=== PATIENT | female | born 1955 | race Caucasian/White ===

== ENCOUNTER 2021-06-27 08:13 | Emergency (ER) | payer OTHER ==
[2021-06-27] MEDS ORDERED: METHYLPREDNISOLONE 125 MG INJ ONE (08:26)
[2021-06-27] MEDS ORDERED: NA CHLORIDE 0.9% 1,000 ML ONE (08:27)
[2021-06-27] MEDS ORDERED: DIPHENHYDRAMINE 50 MG/ML VIAL ONE (08:27)
[2021-06-27] MEDS ORDERED: FAMOTIDINE 20 MG/2 ML VIAL IV ONE (08:27)
--- NOTE | 2021-06-27 09:59 | ER ---
Nurse's Notes [facility] Name: Lucia Beaz Age: 66 yrs Sex: Female : 1955 Arrival Date: 06/27/2021 Time: 08:14 Bed 5 Private MD: Diagnosis: Urticaria, unspecified Presentation: 06/27 08:23 Chief complaint: Patient states: red, itchy rash all over body that began Tuesday. ss Seen at urgent care and given a steroid shot, topical cream and Hydroxizine which only seem to be making it worse. Coronavirus screen: Client denies travel out of the [place] in the last 14 days. Ebola Screen: Patient denies exposure to infectious person. Patient denies travel to an Ebola-affected area in the 21 days before illness onset. Onset: The symptoms/episode began/occurred 3 day(s) ago. Anaphylaxis evaluation, angioedema. Initial Sepsis Screen: Does the patient meet any 2 criteria? No. Patient's initial sepsis screen is negative. Does the patient have a suspected source of infection? No. Patient's initial sepsis screen is negative. Risk Assessment: Do you want to hurt yourself or someone else? Patient reports no desire to harm self or others. Onset of symptoms was June 24, 2021. 08:23 Method Of Arrival: Ambulatory 08:23 Acuity: VICKY 2 ss Historical: - Allergies: 08:29 Antivert; ss 08:29 PENICILLINS; ss - Home Meds: 08:29 Hydroxyzine Oral [Active]; ss - PMHx: 08:29 None; ss - Family history:: not pertinent. - Hospitalizations: : No recent hospitalization is reported. Screenin:30 Abuse screen: Denies threats or abuse. Nutritional screening: No deficits noted. aa5 Tuberculosis screening: No symptoms or risk factors identified. Fall Risk None identified. Assessment: 08:30 General: Appears uncomfortable, Behavior is calm, cooperative. Pain: Denies pain. aa5 Neuro: Level of Consciousness is awake, alert, obeys commands, Oriented to person, place, time, situation. Cardiovascular: Heart tones S1 S2 present Rhythm is regular. Respiratory: Airway is patent Respiratory effort is even, unlabored, Respiratory pattern is regular, symmetrical, Breath sounds are clear bilaterally. GI: Abdomen is flat, non-distended. : No signs and/or symptoms were reported regarding the genitourinary system. EENT: No signs and/or symptoms were reported regarding the EENT system. Derm: Skin is pink, warm \T\ dry. Rash noted that is itchy, red, on throughout body. Musculoskeletal: Range of motion: intact in all extremities. 09:20 Reassessment: Patient is alert, oriented x 3, equal unlabored respirations, skin aa5 warm/dry/pink. pt reports itching has improved. Vital Signs: 08:23 BP 115 / 89; Pulse 134; Resp 21; Temp 99.7(TE); Pulse Ox 98% on R/A; ss 08:35 Pulse 88; Resp 20; Pulse Ox 100% on R/A; aa5 09:21 BP 110 / 49; Pulse 69; Resp 18 S; Pulse Ox 100% on R/A; aa5 ED Course: 08:14 Patient arrived in ED. mr 08:15 Servando Manzo MD is Attending Physician. rn 08:17 Carla Landis RN is Primary Nurse. aa5 08:25 Inserted saline lock: 22 gauge in right forearm, using aseptic technique. dh3 08:29 Triage completed. ss 08:29 Arm band placed on right wrist. ss 08:30 Patient has correct armband on for positive identification. Placed in gown. Bed in low aa5 position. Call light in reach. Adult w/ patient. 10:07 No provider procedures requiring assistance completed. IV discontinued, intact, ss bleeding controlled, No redness/swelling at site. Pressure dressing applied. Administered Medications: 08:35 Drug: SOLU-Medrol (methylPrednisoLONE) 125 mg Route: IVP; Site: right forearm; aa5 10:07 Follow up: Response: No adverse reaction; Marked relief of symptoms ss 08:35 Drug: Benadryl (diphenhydrAMINE) 50 mg Route: IVP; Site: right forearm; aa5 10:06 Follow up: Response: No adverse reaction; Marked relief of symptoms ss 08:35 Drug: NS 0.9% 1000 ml Route: IV; Rate: 1000 ml; Site: right forearm; aa5 10:06 Follow up: IV Status: Completed infusion; IV Intake: 1000ml ss 08:35 Drug: Pepcid (famotidine) 20 mg Route: IVP; Site: right forearm; aa5 10:06 Follow up: Response: No adverse reaction; Marked relief of symptoms ss Intake: 10:06 IV: 1000ml; Total: 1000ml. ss Outcome: 09:59 Discharge ordered by . rn 10:07 Discharged to home ambulatory, with significant other. ss 10:07 Condition: improved 10:07 Discharge instructions given to patient, Instructed on discharge instructions, follow up and referral plans. medication usage, Demonstrated understanding of instructions, follow-up care, medications, Prescriptions given X 1. 10:08 Patient left the ED. Signatures: Malika Orona Roman, MD MD rn Boby, Carla RN RN aa5 Cynthia Roth RN RN ss Sasha Andrea 3 Corrections: (The following items were deleted from the chart) 09:25 08:30 Derm: Skin is pink, warm \T\ dry. Rash noted that is red, on throughout body aa5 aa5
--- NOTE | 2021-06-27 10:00 | EDPHYS ---
Physician Documentation [facility] Name: Lucia Baez Age: 66 yrs Sex: Female : 1955 Arrival Date: 06/27/2021 Time: 08:14 Bed 5 Private MD: ED Physician Servando Manzo HPI: 06/27 08:32 This 66 yrs old Female presents to ER via Ambulatory with complaints of rn Allergic Reaction, Rash. 08:32 The patient presents with itching, rash. Onset: The symptoms/episode began/occurred 4 rn day(s) ago. Associated signs and symptoms: Pertinent positives: hives, rash, Pertinent negatives: abdominal pain, fever, vomiting. Possible causes: The patient has no known obvious cause for the symptoms. At home the patient or guardian has treated the symptoms with Benadryl. Severity of symptoms: At their worst the symptoms were moderate in the emergency department the symptoms are unchanged. The patient has not experienced similar symptoms in the past. The patient has been recently seen by a physician: The patient has been recently seen at an urgent care. Patient reports 4 days of itching and diffuse rash. Reports lip swelling. Seen in urgent care for this and given a cortisone shot. States symptoms have not improved and feels like they are worsening. Was not on steroids for the remainder of the week. No new medication or exposure that she knows of. No previous history of allergic reactions. No shortness of breath or swallowing issues.. Historical: - Allergies: 08:29 Antivert; ss 08:29 PENICILLINS; ss - Home Meds: 08:29 Hydroxyzine Oral [Active]; ss - PMHx: 08:29 None; ss - Family history:: not pertinent. - Hospitalizations: : No recent hospitalization is reported. ROS: 08:32 Constitutional: Negative for fever, chills, and weight loss, Eyes: Negative for injury, rn pain, redness, and discharge, ENT: Negative for injury, pain, and discharge, Neck: Negative for injury, pain, and swelling, Cardiovascular: Negative for chest pain, palpitations, and edema, Respiratory: Negative for shortness of breath, cough, wheezing, and pleuritic chest pain, Abdomen/GI: Negative for abdominal pain, diarrhea, and constipation, Back: Negative for injury and pain, : Negative for injury, bleeding, discharge, and swelling, MS/Extremity: Negative for injury and deformity, Skin: + for rash and itching Neuro: Negative for headache, weakness, numbness, tingling, and seizure. Exam: 08:32 Constitutional: This is a well developed, well nourished patient who is awake, alert, rn and in no acute distress. Appears anxious and constantly scratching. Head/Face: Normocephalic, atraumatic. Eyes: Periorbital areas with no swelling, redness, or edema. Cardiovascular: Regular rate and rhythm. No pulse deficits. Respiratory: Speaking full sentences. No increased work of breathing, no retractions or nasal flaring. Skin: Warm, dry. + diffuse urticaria with excoriations, no bullae, no skin sloughing. MS/ Extremity: Pulses equal, no cyanosis. Neuro: Awake and alert, GCS 15, oriented to person, place, time, and situation. Ambulatory to room without difficulty or assistance. Vital Signs: 08:23 BP 115 / 89; Pulse 134; Resp 21; Temp 99.7(TE); Pulse Ox 98% on R/A; ss 08:35 Pulse 88; Resp 20; Pulse Ox 100% on R/A; aa5 09:21 BP 110 / 49; Pulse 69; Resp 18 S; Pulse Ox 100% on R/A; aa5 MDM: 08:15 Patient medically screened. rn 09:57 Differential diagnosis: anaphylaxis, urticaria, Idiopathic urticaria, acute allergic rn phenomena. Data reviewed: vital signs, nurses notes, and as a result, I will discharge patient. Counseling: I had a detailed discussion with the patient and/or guardian regarding: the historical points, exam findings, and any diagnostic results supporting the discharge/admit diagnosis, the need for outpatient follow up, to return to the emergency department if symptoms worsen or persist or if there are any questions or concerns that arise at home. Response to treatment: the patient's symptoms have mildly improved after treatment, and as a result, I will discharge patient. Special discussion: I discussed with the patient/guardian in detail that at this point there is no indication for admission to the hospital. It is understood, however, that if the symptoms persist or worsen the patient needs to return immediately for re-evaluation. ED course: Patient has improved, still itching but tachycardia resolved and urticaria starting to spread out with better demarcation and less surface area involved. No difficulty breathing. Will DC home with steroids and return precautions. Urged to follow-up with allergy and immunology.. 06/27 08:25 Order name: IV Start; Complete Time: 08:30 rn Administered Medications: 08:35 Drug: SOLU-Medrol (methylPrednisoLONE) 125 mg Route: IVP; Site: right forearm; aa5 10:07 Follow up: Response: No adverse reaction; Marked relief of symptoms ss 08:35 Drug: Benadryl (diphenhydrAMINE) 50 mg Route: IVP; Site: right forearm; aa5 10:06 Follow up: Response: No adverse reaction; Marked relief of symptoms ss 08:35 Drug: NS 0.9% 1000 ml Route: IV; Rate: 1000 ml; Site: right forearm; aa5 10:06 Follow up: IV Status: Completed infusion; IV Intake: 1000ml ss 08:35 Drug: Pepcid (famotidine) 20 mg Route: IVP; Site: right forearm; aa5 10:06 Follow up: Response: No adverse reaction; Marked relief of symptoms ss Disposition Summary: 06/27/21 09:59 Discharge Ordered Location: Home rn Problem: an ongoing problem rn Symptoms: have improved rn Condition: Stable rn Diagnosis - Urticaria, unspecified rn Followup: rn - With: Private Physician - When: As needed - Reason: Recheck today's complaints, Re-evaluation by your physician Discharge Instructions: - Discharge Summary Sheet rn - Broderickes rn Forms: - Medication Reconciliation Form rn - Thank You Letter rn - Antibiotic applications intern - Prescription Opioid Use rn Prescriptions: - Prednisone 20 mg Oral Tablet - take 3 tablets by ORAL route once daily for 5 days; 15 tablet; Refills: 0, rn Product Selection Permitted Signatures: Servando Manzo MD MD rn Calderon, Audri RN RN aa5 Cynthia Roth RN RN ss
[2021-06-27 10:20] VITALS: TEMP 99.7
[2021-06-27 10:21] VITALS: O2SAT 100
[2021-06-27 10:23] VITALS: BP 110/49
== END 2021-06-27 10:08 | disposition home or self-care (01) ==
LOC: ER 08:13
DX: L50.9 Urticaria, unspecified (principal); Z88.0 Allergy status to penicillin; Z88.8 Allergy status to other drugs, medicaments and biological substances
CPT/HCPCS: 96361; 96375; 96374; 99283; J1200; J7030; J2930

== ENCOUNTER 2025-03-20 13:18 | Emergency (ER) | payer OTHER ==
--- OUTSIDE RECORDS SUMMARY | 2025-03-20 13:24 | XMS REPORT | Continuity of Care Document ---
Author Name Unknown Address [address] [facility] [place] [address] [facility] Address [address] [facility] [place] [address] Care Team Providers Care Professor Of Forestry Name Role Phone PCP, PATIENT DOES NOT HAVE A Primary Care Physic julián Unavailable YOSSI NELSON Attending Clinician UnavailArpit Porter MD Attending Clinician ARPIT GARZON Attending Clinician Unavailable Sreekanth Darnell MD Attending Clinician SREEKANTH DARNELL Attending Clinician Unavailable RADIOLOGY Attending Clinician Unavailable Radiology Attending Clinician Unavailable Doctor Unassigned, [place] Attending Clinician U navailable CINTHYA PAREDES Attending Clinician UnavailCinthya Vincent DO Attending Clinician [phone] YOSSI NELSON Admitting Clinician UnavailSREEKANTH Tadeo Admitting Clinician Unavailable CINTHYA PAREDES Admitting Clinician Unavailab garzon Payers Payer Name Policy Type Policy Number Effective Date Expirati on Date Source AEPaolaNA EPO [id number] 2018 00:00:00 MEDICARE PART A \\T\\ B [id number] 2021 00:00:00 MEDICARE PART A AND B Medicare [id number] 2024 00:00:00 [employer] ACO COMM [id number] 2017 00:00:00 [employer] EMPLOYEE COMM [id number] 2017 00:00:00 Problems Condition Name Condition Details Condition Category Status Onset Date Resolution Date Last Treatment Date Treating Clinician Comments Source Nephrolith iasis Nephrolith iasis Disease Active 12-17 00:00: 00 [facility] Left flank pain Left flank pain Disease Active 12-17 00:00: 00 [facility] Prediabete s Prediabete s Disease Active 08-13 00:00: 00 Pao Fisher Hyperlipid emia LDL goal <100 Hyperlipid emia LDL goal <100 Disease Active 08-13 00:00: 00 Pao Fisher Calcium oxalate stones Calcium oxalate stones Disease Active 05-07 00:00: 00 Pao Fisher Hyperparat hyroidism Hyperparat hyroidism Disease Active 05-07 00:00: 00 Pao Fisher Screening for colon cancer Screening for colon cancer Disease Active 05-07 00:00: 00 Pao Fisher History of gastric restrictiv e surgery History of gastric restrictiv e surgery Disease Active 05-07 00:00: 00 Pao Fisher H/O: hysterecto my H/O: hysterecto my Disease Active 05-07 00:00: 00 Pao Fisher Asymptomat ic menopausal state Asymptomat ic menopausal state Disease Active 05-07 00:00: 00 Pao Fisher Family history of diabetes mellitus in father Family history of diabetes mellitus in father Disease Active 05-07 00:00: 00 Pao Fisher Allergies, Adverse Reactions, Alerts Allergy Name Allergy Type Status Severity Reaction(s) Onset Date Inactive Date Treating Clinician Comments Source Penicill ins Propensi ty to adverse reaction s Active 04-11 00:00: 00 Pao Fisher PENICILL INS Drug Class Active 04-11 00:00: 00 MHEOUT NO KNOWN ALLERGIE S Drug Class Active [facility] ALLERGIE S NOT ON FILE SYSTEMIC Active MHEOUT NO KNOWN ALLERGIE S SYSTEMIC Active MHEOUT Social History Social Habit Start Date Stop Date Quantity Comments Source Gender identity 2023-10-30 04:05:04 Identifies as female gender (finding) [facility] ASSERTION Possible [facility] Sexual orientation [facility] Alcoholic beverage intake 2024-08-13 00:00:00 2024-08-13 00:00:00 Lifetime non-drinker (finding) [facility] History of Social function 2024-05-06 00:00:00 2024-05-06 00:00:00 [facility] Tobacco use and exposure 2024-04-11 00:00:00 2024-04-11 00:00:00 Smokeless tobacco non-user [facility] Sex assigned at 1955 00:00:00 1955 00:00:00 [facility] Smoking Status Start Date Stop Date Source Tobacco smoking consumption unknown [facility] Never smoked tobacco Pao [facility] Medications Ordered Medication Name Filled Medication Name Start Date Stop Date Current Medication? Ordering Clinician Indication Dosage Frequency Signature (SIG) Comments Components Source ketorolac (TORADOL) injection 15 mg 12-17 20:45: 00 12-17 20:12 :00 No 15mg 15 mg, Slow IV Push, ONCE, 1 dose, On Tue12/17/24 at 1545, Routine [facility] cyclobenzap rine 5 mg tablet 12-17 00:00: 00 Yes [id number] 5mg Take 1 tablet by mouth every 8 (eight) hours as needed for Muscle Spasms. [facility] Multiple Vitamin (multivitam in) capsule Multiple Vitamin (multivitam in) capsule 08-13 10:40: 05 Yes 1{capsu le} QD Take 1 capsule by mouth 1 time each day. Pao Fisher Semaglutide -Weight Management (Wegovy) 0.25 MG/0.5ML solution auto-inject or Semaglutide -Weight Management (Wegovy) 0.25 MG/0.5ML solution auto-inject or - 00:00: 00 09-10 23:59 :00 No [id number] .25mg Inject 0.25 mg under the skin 1 time each week for 28 days. Pao Fisher aspirin EC 81 MG EC tablet aspirin EC 81 MG EC tablet 04-11 11:47: 53 Yes 81mg QD Take 81 mg by mouth 1 time each day. Pao Fisher estradiol (Estrace) 0.1 MG/GM vaginal cream estradiol (Estrace) 0.1 MG/GM vaginal cream 04-06 00:00: 00 Yes See Instructio ns, apply pea size amount to urethra and vagina nightly for 2 weeks and then 3xweek. May dispose of applicator ., # 43 gm, 3 Refill(s), Pharmacy: [facility] [id number], 167.64, cm, 04/06/23 11:01:00 CDT, Height, 75.455, kg, 04/06/23 11... Pao Fisher ketorolac (TORADOL) injection 15 mg 02-28 16:45: 00 02-28 16:04 :00 No 15mg 15 mg, Slow IV Push, ONCE, 1 dose, On Tue02/28/23 at 1145, Routine [facility] ketorolac 10 mg tablet 02-28 00:00: 00 Yes [id number] 10mg Take 1 tablet by mouth every 6 (six) hours as needed for Pain (scale 1-3). [facility] Immunizations Ordered Immunization Name Filled Immunization Name Date Status Comments Source Pneumococcal Conjugate PCV 20 Pneumococcal Conjugate PCV 20 2023-05-15 00:00:00 Completed [facility] Influenza, High-dose Seasonal, Quadrivalent, Preservative Free Influenza, High-dose Seasonal, Quadrivalent, Preservative Free 2023-05-15 00:00:00 Completed [facility] Vital Signs Vital Name Observation Time Observation Value Comments S ource Systolic blood pressure 2024-12-17 20:13:28 148 mm[Hg] [facility] Diastolic blood pressure 2024-12-17 20:13:28 65 mm[Hg] [facility] Heart rate 2024-12-17 20:13:28 64 /min [facility] Body temperature 2024-12-17 20:13:28 37 Niecy [facility] Respiratory rate 2024-12-17 20:13:28 18 /min [facility] Oxygen saturation in Arterial blood by Pulse oximetry 2024-12-17 20:13:28 99 /min [facility] Body height 2024-12-17 16:33:00 167.6 cm [facility] Body weight 2024-12-17 16:33:00 70.308 kg [facility] BMI 2024-12-17 16:33:00 25.02 kg/m2 [facility] Systolic blood pressure 2024-08-13 10:29:00 111 mm[Hg] [facility] Diastolic blood pressure 2024-08-13 10:29:00 71 mm[Hg] [facility] Heart rate 2024-08-13 10:29:00 69 [facility] Body temperature 2024-08-13 10:29:00 36.61 [facility] Body height 2024-08-13 10:29:00 167.6 cm [facility] Body weight 2024-08-13 10:29:00 72.439 kg [facility] BMI 2024-08-13 10:29:00 25.78 kg/m2 [facility] Systolic blood pressure 2024-08-13 10:29:00 111 mm[Hg] [facility] Diastolic blood pressure 2024-08-13 10:29:00 71 mm[Hg] [facility] Heart rate 2024-08-13 10:29:00 69 /min [facility] Body temperature 2024-08-13 10:29:00 36.61 [facility] Body height 2024-08-13 10:29:00 167.6 cm [facility] Body weight 2024-08-13 10:29:00 72.439 kg [facility] BMI 2024-08-13 10:29:00 25.78 kg/m2 [facility] Systolic blood pressure 2024-06-18 11:23:00 117 mm[Hg] [facility] Diastolic blood pressure 2024-06-18 11:23:00 75 mm[Hg] [facility] Heart rate 2024-06-18 11:23:00 61 /min [facility] Body height 2024-06-18 11:23:00 167.6 cm [facility] Body weight 2024-06-18 11:23:00 69.854 kg [facility] BMI 2024-06-18 11:23:00 24.86 kg/m2 [facility] Systolic blood pressure 2024-06-18 11:23:00 117 mm[Hg] [facility] Diastolic blood pressure 2024-06-18 11:23:00 75 mm[Hg] [facility] Heart rate 2024-06-18 11:23:00 61 /min [facility] Body height 2024-06-18 11:23:00 167.6 cm [facility] Body weight 2024-06-18 11:23:00 69.854 kg [facility] [place] BMI 2024-06-18 11:23:00 24.86 kg/m2 [facility] Systolic blood pressure 2024-05-07 10:13:00 123 mm[Hg] [facility] Diastolic blood pressure 2024-05-07 10:13:00 76 mm[Hg] [facility] Heart rate 2024-05-07 10:13:00 67 /min [facility] Body temperature 2024-05-07 10:13:00 36.39 Niecy [facility] Body height 2024-05-07 10:13:00 167.6 cm [facility] Body weight 2024-05-07 10:13:00 71.442 kg [facility] BMI 2024-05-07 10:13:00 25.42 kg/m2 [facility] Oxygen saturation in Arterial blood by Pulse oximetry 2024-05-07 10:13:00 98 /min [facility] Systolic blood pressure 2024-05-07 10:13:00 123 mm[Hg] [facility] Diastolic blood pressure 2024-05-07 10:13:00 76 mm[Hg] [facility] Heart rate 2024-05-07 10:13:00 67 /min [facility] Body temperature 2024-05-07 10:13:00 36.39 Niecy [facility] Body height 2024-05-07 10:13:00 167.6 cm [facility] 2024-05-07 10:13:00 71.442 kg [facility] BMI 2024-05-07 10:13:00 25.42 kg/m2 Bradleyaysha robertson [facility] Oxygen saturation in Arterial blood by Pulse oximetry 2024-05-07 10:13:00 98 /min [facility] Her crook [facility] Body height 2024-04-11 11:45:00 167.6 cm [facility] Body weight 2024-04-11 11:45:00 72.576 kg [facility] BMI 2024-04-11 11:45:00 25.82 kg/m2 Bradleyaysha robertson [facility] Body height 2024-04-11 11:45:00 167.6 cm Bradleyaysha robertson [facility] Body weight 2024-04-11 11:45:00 72.576 kg Bradleyaysha robertson [facility] BMI 2024-04-11 11:45:00 25.82 kg/m2 [facility] Systolic blood pressure 2023-02-28 15:58:18 143 mm[Hg] [facility] Diastolic blood pressure 2023-02-28 15:58:18 74 mm[Hg] [facility] Heart rate 2023-02-28 15:58:18 86 /min [facility] Body temperature 2023-02-28 15:58:18 37.11 [facility] Respiratory rate 2023-02-28 15:58:18 18 /min [facility] Body height 2023-02-28 15:43:00 167.6 cm [facility] Body weight 2023-02-28 15:43:00 75.297 kg [facility] BMI 2023-02-28 15:43:00 26.79 kg/m2 [facility] Oxygen saturation in Arterial blood by Pulse oximetry 2023-02-28 15:43:00 97 /min [facility] Procedures Procedure Date / Time Performed Performing Clinician Source COMP. METABOLIC PANEL (55503) 2024-12-17 17:43:00 Yossi Nelson [facility] CBC WITH DIFF 2024-12-17 17:43:00 [facility]IS 2024-12-17 17:43:00 Yossi Nelson Un [facility] ABDOMEN PELVIS WO CONTRAST 2024-12-17 17:37:00 Yossi Nelson [facility] LIPID PANEL W/CALCULATED LDL 2024-08-14 09:37:00 Le, Justice-Bre T [facility] HEMOGLOBIN A1C 2024-08-14 09:37:00 Le, Justice-Bre T [facility] US renal complete 2024-06-18 00:00:00 [facility]PREHENS[facility] METABOLIC PANEL 2024-05-08 10:14:00 Le, [facility]-Bre T [facility] LIPID PANEL W/CALCULATED LDL 2024-05-08 10:14:00 Le, Justice-Bre T [facility] VITAMIN B12 LEVEL 2024-05-08 10:14:00 Le, Justice-Bre T [facility] FERRITIN 2024-05-08 10:14:00 Le, Justice-Bre T [facility] FOL[facility] RBC 2024-05-08 10:14:00 Le, Justice-Bre T Bradley rial [facility] HEMOGLOBIN A1C 2024-05-08 10:14:00 Le, Justice-Bre T [facility] MAGNESIUM LEVEL 2024-05-08 10:14:00 Le, [facility] VITAMIN B6 LEVEL 2024-05-08 10:14:00 Le, [facility]-Bre T [facility] VITAMIN B1 LEVEL 2024-05-08 10:14:00 Le, Justice-Bre T [facility] THYROID STIMULATING HORMONE 2024-05-08 10:14:00 Le, Justice-Bre T [facility] COMPLETE BLOOD COUNT W/DIFF AND PLATELET 2024-05-08 10:14:00 Le, [facility]-Bre T [facility] VITAMIN D 25-HYDROXY 2024-05-08 10:14:00 Le, Polina o Paola [facility] VITAMIN A LEVEL 2024-05-08 10:14:00 Arpit Garzon [facility] ZINC LEVEL 2024-05-08 10:14:00 Le, Arpit Huerta rial [facility] COPPER LEVEL 2024-05-08 10:14:00 Le, Arpit Harper Bradley rial [facility] DEXA bone density 2024-05-07 00:00:00 [facility] Cologuard? colon cancer screening 2024-05-07 00:00:00 [facility] Bilateral screening mammogram with tomosynthesis 2024-05-07 00:00:00 [facility] US RETROPERITONEAL COMPLETE 2023-06-01 17:00:29 Requisition, Paper [facility] ASSIGNMENT OF BENEFITS 2023-06-01 15:42:34 Docto r Unassigned, Broughton [facility] BASIC METABOLIC PANEL (NA, K, CL, CO2, GLUCOSE, BUN, CREATININE, CA) 2023-02-28 15:54:00 Cinthya Paredes [facility] CBC WITH DIFF 2023-02-28 15:54:00 [facility] 2023-02-28 15:54:00 [facility]ared[facility] NOTICE OF PRIVACY PRACTICES 2023-02-28 15:39:39 Doctor Unassigned, [place]oughton [facility] Plan of Care Planned Activity Planned Date Details Comments Source Procedure 2025-06-18 00:00:00 US renal complete [facility] Encounters Start Date/Time End Date/Time Encounter Type Admission Type Attending Clinicians Care Facility Care Department Encounter ID Source 2024-12-17 11:36:00 2024-12-17 15:17:00 Emergency X YOSSI NELSON [facility] ERT [id number] [facility] 2024-12-17 11:36:00 2024-12-17 15:17:00 Emergency X YOSSI NELSON [facility] ERT [id number] [facility] 2024-08-30 00:00:00 2024-10-30 20:34:01 Results Follow-Up LeArpit Export [id number] 1.2.840.114 350.1.13.70 8.2.7.2.686 [id number] [facility] 2024-08-13 10:40:00 2024-08-13 11:24:48 Office Visit Le, Arpit Harper Export [id number] 1.2.840.114 350.1.13.70 8.2.7.2.686 [id number] [facility] 2024-08-13 10:27:00 2024-08-13 11:24:48 Outpatient Elective LE, ARPIT MHEOUT MHEOUT [id number] [facility] 2024-05-11 00:00:00 2024-07-11 20:33:23 Results Follow-Up LeArpit Export [id number] 1.2.840.114 350.1.13.70 8.2.7.2.686 [id number] Pao reyes [facility] 2024-05-10 00:00:00 2024-07-10 20:33:09 Results Follow-Up LeArpit Export [id number] 1.2.840.114 350.1.13.70 8.2.7.2.686 [id number] [facility] 2024-07-09 14:01:48 2024-07-09 15:46:59 Outpatient Elective MHEOUT MHEOUT [id number] MHEOUT 2024-06-18 11:10:00 2024-06-18 11:53:19 Office Visit Sreekanth Darnell Export [id number] 1.2.840.114 350.1.13.70 8.2.7.2.686 [id number] [facility] 2024-06-18 11:02:22 2024-06-18 11:53:19 Outpatient Elective SREEKANTH DARNELL MHJoshuaOUT MHEOUT [id number] MHEOUT 2024-05-07 10:20:00 2024-05-07 11:26:27 Office Visit Arpit Garzon [id number] 1.2840.114 350.1.13.70 8.2.7.2.686 [id number] Pao Montilla [facility] 2024-05-07 09:59:06 2024-05-07 11:26:27 Outpatient Elective ARPIT GARZON MHEOUT EOUT [id number] EOUT 2024-04-11 11:08:36 2024-04-11 23:59:00 Outpatient Elective SREEKANTH DARNELL NAOMI EOUT [id number] EOUT 2024-04-11 11:20:00 2024-04-11 11:30:00 Office Visit Sreekanth Darnell [id number] 1.2840.114 350.1.13.70 8.2.7.2.686 [id number] [facility] 2023-06-01 10:43:37 2023-06-01 23:59:00 Outpatient R RADIOLOGY [facility] [id number] [facility] 2023-06-01 10:43:37 2023-06-01 23:59:00 Hospital Encounter Radiology [facility] 1.2.114 350.1.13.10 4.2.7.2.686 [id number] [facility] 2023-06-01 00:00:00 2023-06-01 00:00:00 Orders Only Doctor Unassigned, [place] [facility] 1.2.114 350.1.13.10 4.2.7.2.686 [id number] [facility] 2023-03-01 00:00:00 2023-03-01 00:00:00 Patient Secure Msg Doctor Unassigned, Broughton [facility] 1.2.114 350.1.13.10 4.2.7.2.686 [id number] [facility] 2023-02-28 10:44:00 2023-02-28 12:10:00 Emergency X CINTHYA PAREDES [facility] ERT [id number] [facility] 2023-02-28 10:44:00 2023-02-28 12:10:00 Emergency Cinthya Paredes [facility] 1.2.840.114 350.1.13.10 4.2.7.2.686 [id number] [facility] Results Test Description Test Time Test Comments Results Resul t Comments Source CT ABDOMEN PELVIS WO CONTRAST 2024-12-06 2 18:44:54 ORDERING PHYSICIAN: YOSSI NELSON. HISTORY: Flank pain, kidney stone suspected ? TECHNIQUE: CT abdomen and pelvis without intravenous contrast. ?CT wasperformed according to ALARA (As Low As Reasonably Achievable). ? COMPARISON: 02/28/2023 FINDINGS: Abdomen: Visualized Chest: Visualized portions of the lungs show no consolidation oreffusions. Liver And Biliary Tree: The liver is normal. No stones are present. Thereis no biliary dilation. Spleen: No splenic abnormalities are identified. Kidneys: Small bilateral hemorrhagic cortical cysts measure up to 1.2 cm(left, image 47/2). Punctate sub-2 mm calyceal calculi are present. Thereis no hydronephrosis. Adrenals: No adrenal masses are identified. Pancreas: No pancreatic masses are identified. Lymph Nodes: No adenopathy is identified. Aorta: No aneurysms are seen. Small Bowel: There is a Tiara-en-Y gastric bypass. Terminal ileum is normal. PELVIS: Colon: The appendix is normal. Moderate sigmoid colonic diverticulosis ispresent. Bladder: The bladder wall is smooth. Reproductive Organs: The uterus is absent. Ovaries are normal. Osseous Structures: No suspicious lesions are identified. [facility] WITH [id number] 18:04:36* Test Item Value Reference Range Interpretation Comme nts WBC (test code = 6690-2) 5.94 4.30-11.10 RBC (test code = 789-8) 4.17 3.93-5.25 HGB (test code = 718-7) 12.6 g/dL 11.6-15.0 HCT (test code = 4544-3) 39.1 % 35.7-45.2 MCV (test code = 787-2) 93.8 fL 80.6-95.5 MCH (test code = 785-6) 30.2 pg 25.9-32.8 MCHC (test code = 786-4) 32.2 g/dL 31.6-35.1 RDW-SD (test code = 43690-5) 50.8 fL 39.0-49.9 H RDW-CV (test code = 788-0) 14.7 % 12.0-15.5 PLT (test code = 777-3) 259 166-358 MPV (test code = 56434-3) 9.7 fL 9.5-12.9 NRBC/100 WBC (test code = 7018331781) 0 0.0-10.0 NRBC x10^3 (test code = 1334156809) See_Comment [Automated messa ge] The system which generated this result transmitted reference range: 10*3/?L. The reference range was not used to interpret this result as normal/abnormal. GRAN MAT (NEUT) % (test code = 770-8) 56.2 % IMM GRAN % (test code = 7051521120) 0.3 % LYMPH % (test code = 736-9) 29.6 % MONO % (test code = 5905-5) 11.4 % EOS % (test code = 713-8) 1.7 % BASO % (test code = 706-2) 0.8 % GRAN MAT x10^3(ANC) (test code = 8590470437) 3.33 10*3/uL 1.88-7.09 IMM GRAN x10^3 (test code = 9815964810) 0.00-0.06 LYMPH x10^3 (test code = 731-0) 1.76 10*3/uL 1.32-3.29 MONO x10^3 (test code = 742-7) 0.68 10*3/uL 0.33-0.92 EOS x10^3 (test code = 711-2) 0.1 10*3/uL 0.03-0.39 BASO x10^3 (test code = 704-7) 0.05 10*3/uL 0.01-0.07 Lab Interpretation (test code = 54143-5) [facility]normal [facility] [id number] 05:38:55* Test Item Value Reference Range Interpretation Comme nts Hgb A1C (test code = 4548-4) See_Comment H For someone with out known diabetes, a hemoglobin A1c value between 5.7% and 6.4% is consistent withprediabetes and should be confirmed with a follow-up test..For someone with known diabetes, a value <7%indicates that their diabetes is well controlled. [id number] should be individualized based on duration ofdiabetes, age, comorbid conditions, and otherconsiderations..Th is assay result is consistent with an increased riskof diabetes..Currently, no consensus exists regarding use ofhemoglobin A1c for diagnosis of diabetes for children.. [Automated message] The system which generated this result transmitted reference range: <5.7 % of total Hgb. The reference range was not used to interpret this result as normal/abnormal. KLARISSA (test code = KLARISSA) Lab Interpretation (test code = 09816-0) Abnormal [facility] EpicLipid Panel w/calculated [id number] 05:38:55* Test Item Value Reference Range Interpretation Comme nts Chol (test code = 2093-3) 202 mg/dL <=200 H HDL (test code = 2085-9) 55 mg/dL See_Comment [Automated message] The system which generated this result transmitted reference range: > OR = 50. The reference range was not used to interpret this result as normal/abnormal. Trig (test code = 2571-8) 176 mg/dL <=150 H LDL (Calculated) (test code = 99502-6) mg/dL (calc) H Reference range: <100.Desirable range <100 mg/dL for primary prevention; ?<70 mg/dL for patients with CHD or diabetic patients with > or = 2 CHD risk factors..LDL-C is now calculated using the Yonis calculation, which is a validated novel method providing better accuracy than the Friedewald equation in the estimation of LDL-C. Miha YOUNGBLOOD et al. MONICA. 2013;310(19): 0772-3452 (http://education.Corpsolv.Dimmi/f aq/GPJ853) Chol/HDL Ratio (test code = 9830-1) See_Comment [Automated Shotlst] The system which generated this result transmitted reference range: <5.0 (calc). The reference range was not used to interpret this result as normal/abnormal. Non HDL Chol (test code = 01690-8) See_Comment H For patients wit h diabetes plus 1 major ASCVD risk factor, treating to a non-HDL-C goal of <100 mg/dL (LDL-C of <70 mg/dL) is considered a therapeutic option. [Automated message] The system which generated this result transmitted reference range: <130 mg/dL (calc). The reference range was not used to interpret this result as normal/abnormal. KLARISSA (test code = KLARISSA) Lab Interpretation (test code = 40153-5) [facility]Diff and [id number] 17:32:07 * Test Item Value Reference Range Interpretation Comme nts WBC X 10x3 (test code = 6690-2) See_Comment [Automated Shotlst] The system which generated this result transmitted reference range: 3.8 - 10.8 Thousand/uL. The reference range was not used to interpret this result as normal/abnormal. RBC X 10x6 (test code = 789-8) See_Comment [Automated Shotlst] The system which generated this result transmitted reference range: 3.80 - 5.10 Million/uL. The reference range was not used to interpret this result as normal/abnormal. Hgb (test code = 718-7) 13.5 g/dL 11.7-15.5 Hct (test code = 4544-3) 41.9 % 35.0-45.0 MCV (test code = 787-2) 95 fL 80.0-100.0 MCH (test code = 785-6) 30.6 pg 27.0-33.0 MCHC (test code = 786-4) 32.2 g/dL 32.0-36.0 For adults, a sl ight decrease in the calculated MCHCvalue (in the range of 30 to 32 g/dL) is most likelynot clinically significant; however, it should beinterpreted with caution in correlation with otherred cell parameters and the patient's clinicalcondition. RDW (test code = 788-0) 12.5 % 11.0-15.0 Platelet (test code = 777-3) See_Comment [Automated messa ge] The system which generated this result transmitted reference range: 140 - 400 Thousand/uL. The reference range was not used to interpret this result as normal/abnormal. MPV (test code = 776-5) 12.3 fL 7.5-12.5 Segs # (test code = 751-8) See_Comment [Automated messa ge] The system which generated this result transmitted reference range: 1,500 - 7,800 cells/uL. The reference range was not used to interpret this result as normal/abnormal. Lymphocytes # (test code = 731-0) See_Comment [Automated messa ge] The system which generated this result transmitted reference range: 850 - 3,900 cells/uL. The reference range was not used to interpret this result as normal/abnormal. Monocytes # (test code = 742-7) See_Comment [Automated messa ge] The system which generated this result transmitted reference range: 200 - 950 cells/uL. The reference range was not used to interpret this result as normal/abnormal. Eosinophils # (test code = 711-2) See_Comment [Automated messa ge] The system which generated this result transmitted reference range: 15 - 500 cells/uL. The reference range was not used to interpret this result as normal/abnormal. Basophils # (test code = 704-7) See_Comment [Automated messa ge] The system which generated this result transmitted reference range: 0 - 200 cells/uL. The reference range was not used to interpret this result as normal/abnormal. Segs % (test code = 770-8) 57.8 % Lymphocytes (test code = 736-9) 29.6 % Monocytes (test code = 5905-5) 10.1 % Eos % (test code = 713-8) 1.5 % Basophils (test code = 706-2) 1 % KLARISSA (test code = KLARISSA) [facility] Dzzsrdp6184-65-08 17:32:07* Test Item Value Reference Range Interpretation Comme nts TSH (test code = 3016-3) See_Comment [Automated messa ge] The system which generated this result transmitted reference range: 0.40 - 4.50 mIU/L. The reference range was not used to interpret this result as normal/abnormal. KLARISSA (test code = KLARISSA) [facility] EpicHemoglobin [id number] 17:32:07* Test Item Value Reference Range Interpretation Comme [facility] Hgb A1C (test code = 4548-4) See_Comment H For someone with out known diabetes, a hemoglobin A1c value between 5.7% and 6.4% is consistent withprediabetes and should be confirmed with a follow-up test..For someone with known diabetes, a value <7%indicates that their diabetes is well controlled. [id number] should be individualized based on duration ofdiabetes, age, comorbid conditions, and otherconsiderations..Th is assay result is consistent with an increased riskof diabetes..Currently, no consensus exists regarding use ofhemoglobin A1c for diagnosis of diabetes for children.. [Automated message] The system which generated this result transmitted reference range: <5.7 % of total Hgb. The reference range was not used to interpret this result as normal/abnormal. KLARISSA (test code = KLARISSA) Lab Interpretation (test code = 60388-6) [facility]normal [facility] EpicVitamin A [id number] 17:32:07* Test Item Value Reference Range Interpretation Comme [facility] Vitamin A (test code = 2923-1) See_Comment (Note).Clin Ch em Vol. 34.No.8. [id number]. 1998Vitamin supplementation within 24 hours prior to blood draw may affect the accuracy of results..This test was developed and its analytical performance characteristics have been determined by [employer]. It has not been cleared or approved by the FDA. This assay has been validated pursuant to the CLIA regulations and is used for clinical purposes..[facility] [address] [place] [address],[address] [place] [address] [phone] Davila MD, PhD [Automated message] The system which generated this result transmitted reference range: 38 - 98 mcg/dL. The reference range was not used to interpret this result as normal/abnormal. KLARISSA (test code = KLARISSA) Kyrie Montilla EpicVitamin B12 [id number] 17:32:07* Test Item Value Reference Range Interpretation Comme nts Vitamin B12 Lvl (test code = 2132-9) 600 pg/mL 200-1100 KLARISSA (test code = KLARISSA) [facility] FisherFolate [id number] 17:32:07* Test Item Value Reference Range Interpretation Comme nts Folate RBC (test code = 2283-0) See_Comment [Automated messa ge] The system which generated this result transmitted reference range: >280 ng/mL RBC. The reference range was not used to interpret this result as normal/abnormal. KLARISSA (test code = KLARISSA) Kyrie Montilla MqnmTzokqwaa5142-27-59 17:32:07* Test Item Value Reference Range Interpretation Comme nts Ferritin Lvl (test code = 2276-4) 16 ng/mL 16-288 KLARISSA (test code = KLARISSA) [facility]rie FisherVitamin B1 [id number] 17:32:07* Test Item Value Reference Range Interpretation Comme nts VITAMIN B1 (THIAMINE) WHOLE BLOOD (test code = 54861-8) 102 nmol/L 78-185 (Note).Vitamin supplementation within 24 hours prior to blood draw may affect the accuracy of the results..This test was developed and its analytical performance characteristics have been determined by [facility]. It has not been cleared or approved by FDA. This assay has been validated pursuant to the CLIA regulations and is used for clinical purposes..[facility] qaaazq[address] [place] [address],[address] [phone] James L. Frame, MD, PhD KLARISSA (test code = KLARISSA) Kyrie FisherCopper, [id number] 17:32:07* Test Item Value Reference Range Interpretation Comme nts Copper Lvl (test code = 5631-7) See_Comment (Note)This test was developed and its analytical performancecharacteristics have been determined by [facility] [employer].It has not been cleared or approved by the FDA. This assayhas been validated pursuant to the CLIA regulations and isused for clinical purposes..[facility] kktojb[address] [place] [address],[address] [place] [address] [phone] James L. Frame, MD, PhD [Automated message] The system which generated this result transmitted reference range: 70 - 175 mcg/dL. The reference range was not used to interpret this result as normal/abnormal. KLARISSA (test code = KLARISSA) [facility] RcefSzue2065-27-44 17:32:07* Test Item Value Reference Range Interpretation Comme nts Zinc Lvl (test code = 5763-8) See_Comment (Note)This test was developed and its analytical performancecharacteristics have been determined by [facility]. It has not been cleared or approved by the FDA. This assay has been validated pursuant to the CLIA regulations and is used for clinical purposes..[facility] nosnyl[address] [place] [address],[address] [place] [address] [phone] Davila MD, PhD [Automated message] The system which generated this result transmitted reference range: 60 - 130 mcg/dL. The reference range was not used to interpret this result as normal/abnormal. KLARISSA (test code = KLARISSA) [facility] KnniDwrhkzxey3134-43-93 17:32:07* Test Item Value Reference Range Interpretation Comme nts Magnesium Lvl (test code = 03154-0) 2.1 mg/dL 1.5-2.5 KLARISSA (test code = KLARISSA) [facility] [id number] 17:32:07* Test Item Value Reference Range Interpretation Comme nts Vitamin B6 (test code = 05069-7) 19 ng/mL 2.1-21.7 (Note)Vitamin supplementation within 24 hours prior to blood draw may affect the accuracy of results..This test was developed and its analytical performance characteristics have been determined by [facility]. It has not been cleared or approved by the FDA. This assay has been validated pursuant to the CLIA regulations and is used for clinical purposes..MDed [address] [place] [address],[address] [place] [address] [phone] James L. Frame, MD, PhD KLARISSA (test code = KLARISSA) [facility] [employer] Genome ProjectLipid Panel w/calculated [id number] 17:32:06* Test Item Value Reference Range Interpretation Comme nts Chol (test code = 2093-3) 229 mg/dL <=200 H HDL (test code = 2085-9) 60 mg/dL See_Comment [Automated message] The system which generated this result transmitted reference range: > OR = 50. The reference range was not used to interpret this result as normal/abnormal. Trig (test code = 2571-8) 140 mg/dL <=150 LDL (Calculated) (test code = 34531-0) mg/dL (calc) H Reference range: <100.Desirable range <100 mg/dL for primary prevention; ?<70 mg/dL for patients with CHD or diabetic patients with > or = 2 CHD risk factors..LDL-C is now calculated using the Miah-Hathaway calculation, which is a validated novel method providing better accuracy than the Friedewald equation in the estimation of LDL-C. Miah SS et al. MONICA. 2013;310(19): 4463-8793 (http://education.Corpsolv.Dimmi/f aq/UKC911) Chol/HDL Ratio (test code = 9830-1) See_Comment [Automated Shotlst] The system which generated this result transmitted reference range: <5.0 (calc). The reference range was not used to interpret this result as normal/abnormal. Non HDL Chol (test code = 09660-9) See_Comment H For patients wit h diabetes plus 1 major ASCVD risk factor, treating to a non-HDL-C goal of <100 mg/dL (LDL-C of <70 mg/dL) is considered a therapeutic option. [Automated message] The system which generated this result transmitted reference range: <130 mg/dL (calc). The reference range was not used to interpret this result as normal/abnormal. KLARISSA (test code = KLARISSA) Lab Interpretation (test code = 26154-6) [facility] Metabolic [id number] 17:32:06* Test Item Value Reference Range Interpretation Comme nts Glucose Lvl (test code = 2345-7) 89 mg/dL 65-99 . Fasting refere nce interval. BUN (test code = 3094-0) 17 mg/dL 7-25 Creatinine Lvl (test code = 2160-0) 0.78 mg/dL 0.50-1.05 eGFR (test code = 63836-6) See_Comment [Automated Shotlst] The system which generated this result transmitted reference range: > OR = 60 mL/min/1.73m2. The reference range was not used to interpret this result as normal/abnormal. B/C Ratio (test code = 3097-3) SEE NOTE: See_Comment ? Not Reported: BUN and Creatinine are within ? reference range.. [Automated message] The system which generated this result transmitted reference range: 6 - 22 (calc). The reference range was not used to interpret this result as normal/abnormal. Sodium Lvl (test code = 2951-2) 141 mmol/L 135-146 Potassium Lvl (test code = 2823-3) 4.3 mmol/L 3.5-5.3 Chloride Lvl (test code = 2075-0) 104 mmol/L 98-110 CO2 Lvl (test code = 2027-9) 30 mmol/L 20-32 Calcium Lvl (test code = 33136-7) 9.8 mg/dL 8.6-10.4 Total Protein (test code = 2885-2) 7.3 g/dL 6.1-8.1 Albumin Lvl (test code = 1751-7) 4.7 g/dL 3.6-5.1 Globulin (test code = 97338-6) See_Comment [Automated Shotlst] The system which generated this result transmitted reference range: 1.9 - 3.7 g/dL (calc). The reference range was not used to interpret this result as normal/abnormal. A/G Ratio (test code = 1759-0) See_Comment [Automated Shotlst] The system which generated this result transmitted reference range: 1.0 - 2.5 (calc). The reference range was not used to interpret this result as normal/abnormal. Bili Total (test code = 1974-2) 0.4 mg/dL 0.2-1.2 Alk Phos (test code = 6768-6) 113 U/L 37-153 AST (test code = 1920-8) 19 U/L 10-35 ALANINE AMINOTRANSFERASE (test code = 1742-6) 14 U/L 6-29 KLARISSA (test code = KLARISSA) [facility] 95-[id number] 17:32:06* Test Item Value Reference Range Interpretation Comme nts Vitamin D, 25-OH, Total (test code = 70866-0) 32 ng/mL 30-100 Vitamin D Status 25-OH Vitamin D:.Deficiency: <20 ng/mLInsufficiency: 20 - 29 ng/mLOptimal: > or = 30 ng/mL.For 25-OH Vitamin D testing on patients on D2-supplementation and patients for whom quantitation of D2 and D3 fractions is required, the QuestAssureD(TM)25-OH VIT D, (D2,D3), LC/MS/MS is recommended: order code 94244 (patients >2yrs)..See Note 1.Note 1.For additional information, please refer to http://education.kaleo/faq/KHV008 (This link is being provided for informational/educationa l purposes only.) KLARISSA (test code = KLARISSA) [facility] Notes Date/Time Note Provider Source 2024-12-17 15:16:36 Pt given printed and verbal discharge instructions regarding left flank pain and nephrolithiasis, encouraged hydration, 1 Prescriptions sent. Pt verbalized understanding of instructions, pt awake alert oriented, resp reg unlabored, skin w/d, color appropriate for race, moves all ext well,pt encouraged to follow up with pcp Advised to seek medical attention for new/prolonged/worsening of symptoms, Symptoms improved. No adverse reaction to meds given in ER noted upon discharge PIV d'cd, dressing to site, catheter in tact. Awake, alert oriented, resp reg unlabored, skin w/d, pt leaving amb with steady gait, in no apparent distress, Trisha Gauthier RN [facility] 2024-12-17 11:34:23 Patient had UTI last week, was prescribed antibiotics and finished course. Here today with recurring symptoms, urinary frequency and abdominal pain that "shoots through" to flank. Patient thinks she may have kidney stone. HX: denies. Karina Rodgers RN [facility]2025-03-25 20:36:51 [place] [address]-01-08 10:26:52* Medications - Denied Specialty Diagnoses / Procedures Referred By Shelton harper Referred To Contact [place] [id number] [facility] [place] [address] Phone: tel: fax: Referral ID Status Reason Start Date Expiration Date Visits Re quested Visits Authorized [id number] Denied 1 1 [facility]ER [facility]51[facility]35 10:26:52* [facility] 10:26:52* Arpit Garzon MD - 08/13/2024 10:40 AM HOSIERY MATER S: Lucia Moyer is a 69 y.o. female who presents for Follow-up (On prediabetes ). Answers submitted by the patient for this visit: Diabetes Questionnaire (Submitted on 08/08/2024) Chief Complaint: Diabetes problem MedicAlert ID: No blurred vision: No chest pain: No fatigue: Yes foot paresthesias: No foot ulcerations: No polydipsia: Yes polyphagia: No polyuria: No visual change: No weakness: No weight loss: No Symptom course: stable confusion: No speech difficulty: No dizziness: No nervous/anxious: No headaches: No hunger: No mood changes: No pallor: No seizures: No tremors: No sleepiness: No sweats: No blackouts: No hospitalization: No nocturnal hypoglycemia: No required assistance: No required glucagon: No CVA: No heart disease: No impotence: No nephropathy: No peripheral neuropathy: No PVD: No retinopathy: No CAD risks: dyslipidemia, family history, obesity, post-menopausal, stress Current treatments: none breakfast time: 7-8 am lunch time: 12-1 pm dinner time: 6-7 pm Bedtime: 10-11 pm Weight trend: stable Current diet: generally healthy Meal planning: none Exercise: rarely Dietitian visit: No Sees union representative: No Current Outpatient Medications Medication Sig Dispense Refill aspirin EC 81 MG EC tablet Take 81 mg by mouth 1 time each day. estradiol (Estrace) 0.1 MG/GM vaginal cream See Instructions, apply pea size amount to urethra and vagina nightly for 2 weeks and then 3xweek. May dispose of applicator., # 43 gm, 3 Refill(s), Pharmacy: [facility] [id number], 167.64, cm, 04/06/23 11:01:00 CDT, Height, 75.455, kg, 04/06/23 11... Multiple Vitamin (multivitamin) capsule Take 1 capsule by mouth 1 time each day. Semaglutide-Weight Management (Wegovy) 0.25 MG/0.5ML solution auto-injector Inject 0.25 mg under the skin 1 time each week for 28 days. 2 mL 0 No current facility-administered medications for this visit. Allergies Allergen Reactions Penicillins Past Medical History: Diagnosis Date Allergic Arthritis Kidney stone Obesity Urinary tract infection Past Surgical History: Procedure Laterality Date BLADDER SURGERY CYSTOSCOPY HYSTERECTOMY KIDNEY STONE SURGERY LITHOTRIPSY TONSILLECTOMY ROS: see hpi O: Blood pressure 111/71, pulse 69, temperature 36.6 ?C (97.9 ?F), temperature source Temporal, height 1.676 m (5' 6"), weight 72.4 kg (159 lb 11.2 oz). Body mass index is 25.78 kg/m?. General Appearance: Well appearing, well developed, well nourished, well hydrated, good color, and in no acute distress Head: Normocephalic atraumatic Eyes: no erythema, no discharge Ears: Normal external shape Nose: no discharge Musculoskeletal: No obvious deformity. Moves all 4 extremities, stable gait. Extremities: Symmetric, no obvious defect Neurologic: Alert/appropriate Skin: no obvious rash Psych: Mood congruent affect, responds appropriately to questions. Office Visit on 08/13/2024 Component Date Value Hgb A1C 08/14/2024 5.9 (H) Chol 08/14/2024 202 (H) HDL 08/14/2024 55 Trig 08/14/2024 176 (H) LDL (Calculated) 08/14/2024 118 (H) Chol/HDL Ratio 08/14/2024 3.7 Non HDL Chol 08/14/2024 147 (H) Office Visit on 05/07/2024 Component Date Value WBC X 10x3 05/08/2024 5.2 RBC X 10x6 05/08/2024 4.41 Hgb 05/08/2024 13.5 Hct 05/08/2024 41.9 MCV 05/08/2024 95.0 MCH 05/08/2024 30.6 MCHC 05/08/2024 32.2 RDW 05/08/2024 12.5 Platelet 05/08/2024 287 MPV 05/08/2024 12.3 Segs # 05/08/2024 3,006 Lymphocytes # 05/08/2024 1,539 Monocytes # 05/08/2024 525 Eosinophils # 05/08/2024 78 Basophils # 05/08/2024 52 Segs % 05/08/2024 57.8 Lymphocytes 05/08/2024 29.6 Monocytes 05/08/2024 10.1 Eos % 05/08/2024 1.5 Basophils 05/08/2024 1.0 TSH 05/08/2024 0.94 Chol 05/08/2024 229 (H) HDL 05/08/2024 60 Trig 05/08/2024 140 LDL (Calculated) 05/08/2024 143 (H) Chol/HDL Ratio 05/08/2024 3.8 Non HDL Chol 05/08/2024 169 (H) Hgb A1C 05/08/2024 5.9 (H) Glucose Lvl 05/08/2024 89 BUN 05/08/2024 17 Creatinine Lvl 05/08/2024 0.78 eGFR 05/08/2024 83 B/C Ratio 05/08/2024 SEE NOTE: Sodium Lvl 05/08/2024 141 Potassium Lvl 05/08/2024 4.3 Chloride Lvl 05/08/2024 104 CO2 Lvl 05/08/2024 30 Calcium Lvl 05/08/2024 9.8 Total Protein 05/08/2024 7.3 Albumin Lvl 05/08/2024 4.7 Globulin 05/08/2024 2.6 A/G Ratio 05/08/2024 1.8 Bili Total 05/08/2024 0.4 Alk Phos 05/08/2024 113 AST 05/08/2024 19 ALANINE AMINOTRANSFERASE 05/08/2024 14 Vitamin A 05/08/2024 42 Vitamin D, 25-OH, Total 05/08/2024 32 Vitamin B12 Lvl 05/08/2024 600 Folate RBC 05/08/2024 556 COLOGUARD RESULT 05/22/2024 Negative Ferritin Lvl 05/08/2024 16 VITAMIN B1 (THIAMINE) WH* 05/08/2024 102 Copper Lvl 05/08/2024 117 Zinc Lvl 05/08/2024 64 Magnesium Lvl 05/08/2024 2.1 Vitamin B6 05/08/2024 19.0 No orders to display Problem List Items Addressed This Visit Prediabetes - Primary Relevant Medications Semaglutide-Weight Management (Wegovy) 0.25 MG/0.5ML solution auto-injector Other Relevant Orders Hemoglobin A1c (Completed) Hyperlipidemia LDL goal <100 Relevant Orders Lipid Panel w/calculated LDL (Completed) Patient understands and verbalizes agreement. Arpit Garzon MD 10:25 AM August 15, 2024 [facility]ER [facility]ajaip[facility]22-23-97 10:26:52 [facility]jfatng1001-97-17 10:26:52 Diagnosis Prediabetes - Primary Other abnormal glucose Hyperlipidemia LDL goal <100 Other and unspecified hyperlipidemia [facility]gztqwl2737-18-87 10:26:52 [facility]qrjcsg9069-07-02 20:43:31Upcoming Encounters Health Maintenance Due Date Last Done Comments Bone Density Scan 1956 CT Colonography 1956 Colonoscopy 1956 FIT 1956 FOBT 1956 Sigmoidoscopy 1956 DTaP/Tdap/Td Vaccines (1 - Tdap) 1975 Mammogram 1996 Zoster Vaccines (1 of 2) 2006 Influenza Vaccine (#1) 2024 05/15/2023 Annual Physical 05/07/2025 05/07/2024, 05/07/2024, 05/07/2024 Colorectal Cancer Screening 05/22/2027 FIT-DNA 05/22/2027 05/22/2024, 05/22/2024 Respiratory Syncytial Virus (RSV) or >=60 (1 - 1-dose 75+ series) 2031 Pneumococcal Vaccine: 65+ Years Completed 05/15/2023 HIB Vaccines Aged Out No longer eligi ble based on patient's age to complete this topic HPV Vaccines Aged Out No longer eligi ble based on patient's age to complete this topic Hepatitis A Vaccines Aged Out No long er eligible based on patient's age to complete this topic Hepatitis B Vaccines Aged Out No long er eligible based on patient's age to complete this topic IPV Vaccines Aged Out No longer eligi ble based on patient's age to complete this topic Meningococcal Vaccine Aged Out No fish roma eligible based on patient's age to complete this topic Rotavirus Vaccines Aged Out No longer eligible based on patient's age to complete this topic [facility]pg[facility]ft8975-33-90 20:43:31 [facility]xoalpz1122-13-13 20:41:30Upcoming Encounters Health Maintenance Due Date Last Done Comments Bone Density Scan 1956 CT Colonography 1956 Colonoscopy 1956 FIT 1956 FOBT 1956 Sigmoidoscopy 1956 DTaP/Tdap/Td Vaccines (1 - Tdap) 1975 Mammogram 1996 Zoster Vaccines (1 of 2) 2006 Influenza Vaccine (#1) 2024 05/15/2023 Annual Physical 05/07/2025 05/07/2024, 05/07/2024, 05/07/2024 Colorectal Cancer Screening 05/22/2027 FIT-DNA 05/22/2027 05/22/2024, 05/22/2024 Respiratory Syncytial Virus (RSV) or >=60 (1 - 1-dose 75+ series) 2031 Pneumococcal Vaccine: 65+ Years Completed 05/15/2023 HIB Vaccines Aged Out No longer eligi ble based on patient's age to complete this topic HPV Vaccines Aged Out No longer eligi ble based on patient's age to complete this topic Hepatitis A Vaccines Aged Out No long er eligible based on patient's age to complete this topic Hepatitis B Vaccines Aged Out No long er eligible based on patient's age to complete this topic IPV Vaccines Aged Out No longer eligi ble based on patient's age to complete this topic Meningococcal Vaccine Aged Out No fish roma eligible based on patient's age to complete this topic Rotavirus Vaccines Aged Out No longer eligible based on patient's age to complete this topic [facility]zjzzcv7249-16-07 20:41:30 [facility]Jbsdlku0713-30-63 13:22:19* [facility]Eswjciu9429-94-66 13:22:19* Sreekanth Darnell MD - 06/18/2024 11:10 AM HOSIERY MATER Subjective Lucia Moyer is a 69 y.o. who presents today follow up of Imaging results (CT, KUB) and Med Refill (estradiol) 67-year-old female with recurrent kidney stones and UTIs. She reports spontaneous passage of multiple stones and one episode requiring lithotripsy. She recently passed a 6 mm stone which she brings with her today. She had a CT scan which was obtained on 02/28/2023. I personally reviewed the images which demonstrate a 6 mm distal left ureteral calculus with hydronephrosis she also has small indeterminate renal cysts She reports recurrent infections about 3 every year Plan: 67-year-old female with recurrent kidney stones and UTI and renal cyst UTI prevention handout given Discussed hydration, constipation management, Cranberry/d-mannose supplement Estrogen supplementation discussed with patient. prescription sent to pharmacy, risks, benefits and alternatives discussed. We will send stone off for stone analysis We will obtain a renal ultrasound in 6 months to evaluate renal cyst 04/25/2023 Presents today for follow-up Stone analysis analysis demonstrates calcium oxalate monohydrate and dihydrate stone. We discussed proceeding with metabolic work-up with 24-hour urine collection, lab evaluation in 6 weeks We will also order renal ultrasound to confirm resolution of hydronephrosis 06/13/2023 Patient is 24-hour urine collection which demonstrates high urine oxalate, 57 mg per 24-hour, low phosphorus 555 mg per 24-hour. Her urine volume is 2.14 L. Her supersaturation of calcium oxalate is 8.78. Her labs were remarkable for elevated parathyroid. She does report a history of a gastric bypass Renal ultrasound with intraparenchymal stones with no collecting system stones. No hydronephrosis. Recommended that she adhere to a low oxalate diet and a dietary calcium of 800 to 1200 mg/day. Low oxalate diet handout was provided May have an element of malabsorption related to her bypass. We discussed that for some people they need to be on a calcium supplement with her diet. She does not have a PCP so referred her to Dr. Hatfield for evaluation of hyperparathyroidism 04/11/2024 Patient presents with repeat renal ultrasound which demonstrates new kidney stones She reports adhering to a low oxalate diet with a normal amount of calcium per day. She has not seen anybody for the hyperparathyroidism Will obtain a CT abdomen pelvis without contrast to evaluate stone presence. Will obtain a KUB to see if the radiolucent or radiopaque Will refer her to endocrine surgery as well as Dr. Hatfield for PCP 06/18/24 Follow-up for kidney stones. Patient's previous ultrasound showed kidney stones. Subsequent CT scan showed minute calcifications, likely what was seen on ultrasound. Patient also has kidney cysts, which do not appear concerning. Patient denies any symptoms. Past medical history: Gallstones, possible parathyroid issue. Referral: Bodywork Therapist --Patient had difficulty scheduling appointment. Objective: CT scan: Minute calcifications in kidneys, likely not clinically significant. Kidney cysts present, not concerning. Assessment & Plan: Kidney Stones Assessment: Tiny kidney stones, likely not requiring intervention. Plan: Renal ultrasound in 1 year. Advised to hydrate. Referral to target setter to be arranged. E&M visit today is associated with current or anticipated ongoing medical care services related to a patient's single, serious condition or a complex condition. [facility] Female Bladder Questionnaire 06/17/2024 10:02 AM HOSIERY MATER - Filed by Patient When do you leak urine? On average, how much do you leak? Has your leakage worsened over the past year? Do you ever leak urine without awareness it's happening? Do you wear a pad or protective undergarment due to leaking? Select all that apply: How many times a day do you urinate, on average? How many times do you urinate after going to bed, on average? Select all that apply: Past History Past Medical History: Diagnosis Date Allergic Arthritis Kidney stone Obesity Urinary tract infection Patient Active Problem List Diagnosis Calcium oxalate stones Hyperparathyroidism (HCC) Preventative health care Encounter for screening mammogram for malignant neoplasm of breast Screening for colon cancer History of gastric restrictive surgery H/O: hysterectomy Asymptomatic menopausal state Family history of diabetes mellitus in father Past Surgical History: Procedure Laterality Date BLADDER SURGERY CYSTOSCOPY HYSTERECTOMY KIDNEY STONE SURGERY LITHOTRIPSY TONSILLECTOMY Family History: Problem Relation Name Age of Onset Arthritis Mother Mom Carotid Artery Stenosis Mother Mom Heart disease Mother Mom Hypertension Mother Mom Stroke Mother Mom Diabetes Father Casimiro Accidental Brother Jack Alcohol abuse Brother 4 brothers had this Drug abuse Brother 4 brothers had this COPD Brother Bentley Allergies Allergen Reactions Penicillins Objective BP 117/75 | Pulse 61 | Ht 1.676 m (5' 6") | Wt 69.9 kg (154 lb) | BMI 24.86 kg/m? General Appearance: Alert, cooperative, no distress, appropriate for age HEENT: Normocephalic, EOM's intact, conjunctiva and corneas clear, moist mucous membranes Lungs: Respirations unlabored Back: no CVA tenderness Abdomen: Soft, non-tender, bowel sounds active all four quadrants, no mass, or organomegaly Musculoskeletal: Tone and strength strong and symmetrical, all extremities Skin/Hair/Nails: Skin warm, dry, and intact, no rashes or abnormal dyspigmentation Neurologic: Alert and oriented x3 Assessment & Plan Diagnoses and all orders for this visit: Calculus of kidney - US renal complete; Future - US renal complete; Future Hyperparathyroidism, unspecified (HCC) - US renal complete; Future - US renal complete; Future [facility]2024-11-11 13:22:19Upcoming Encounters Scheduled Orders Name Type Priority Associated Diagnoses Orde r Schedule US renal complete Imaging Routine Calculus of kidney Hyperparathyroidism, unspecified (HCC) Expected: 06/18/2024 (Approximate), Expires: 06/18/2025 US renal complete Imaging Routine Calculus of kidney Hyperparathyroidism, unspecified (HCC) Expected: 06/18/2025 (Approximate), Expires: 06/19/2025 Health Maintenance Due Date Last Done Comments Bone Density Scan 1956 CT Colonography 1956 Colonoscopy 1956 FIT 1956 FOBT 1956 Sigmoidoscopy 1956 DTaP/Tdap/Td Vaccines (1 - Tdap) 1975 Mammogram 1996 Zoster Vaccines (1 of 2) 2006 Respiratory Syncytial Virus (RSV) or >=60 (1 - 1-dose 60+ series) 2016 Influenza Vaccine (#1) 2024 05/15/2023 Annual Physical 05/07/2025 05/07/2024, 05/07/2024, 05/07/2024 Colorectal Cancer Screening 05/22/2027 FIT-DNA 05/22/2027 05/22/2024, 05/22/2024 Pneumococcal Vaccine: 65+ Years Completed 05/15/2023 HIB Vaccines Aged Out No longer eligi ble based on patient's age to complete this topic HPV Vaccines Aged Out No longer eligi ble based on patient's age to complete this topic Hepatitis A Vaccines Aged Out No long er eligible based on patient's age to complete this topic Hepatitis B Vaccines Aged Out No long er eligible based on patient's age to complete this topic IPV Vaccines Aged Out No longer eligi ble based on patient's age to complete this topic Meningococcal Vaccine Aged Out No fish roma eligible based on patient's age to complete this topic Rotavirus Vaccines Aged Out No longer eligible based on patient's age to complete this topic [id number] 13:22:19 Diagnosis Calculus of kidney - Primary Hyperparathyroidism, unspecified (HCC) Hyperparathyroidism, unspecified [id number] 13:22:19 [id number] 04:47:48* Consultation (Routine) - Authorized Specialty Diagnoses / Procedures Referred By Shelton harper Referred To Contact Endocrinology Diagnoses Hyperparathyroidism (HCC) Procedures [place] OFFICE/OUTPATIENT [facility] MDM 60-[place] [address] [address] [place] [phone] Phone: tel: fax: [place] [address] [address] [place] [phone] Phone: tel: fax: Referral ID Status Reason Start Date Expiration Date Visits Requested Visits Authorized [id number] Authorized Specialty Services Required 05/07/2024 11/03/2024 1 12 [facility] [id number] 04:47:48* Kyrie MontillaXclgsnu1906-49-56 04:47:48* Arpit Garzon MD - 05/07/2024 10:20 AM CDT S: Lucia Moyer is a 69 y.o. female who presents for Establish Care. Last Wells: > 1 year ago Patient's due for preventative labs and all of her cancer screening s/p hysterectomy in 30s - not due to cancer Last MMG: > 10 years Colonoscopy: had one when she was 17 years because she's but they didn't know that; last one was 10 years ago; opted for cologuard Last bone scan: years ago Eye/dentist: TND Refrigerating Engineer saw something in her eye at the recent eye exam but patient's not sure what it was S/p gastric bypass surgery Diagnosed with kidney (calcium oxalate) stones in her 20s History of recurrent UTIs as a result Sees Urology Dr. Sreekanth Darnell Told that her stones are probably due to her hyperPTH Has not been seen for her hyperPTH Dad had DM but from PNA complication Mom had a stroke in her 80s and bladder cancer but she took Zelgan ?PGM: breast CA Patient also takes CoQ10, calcium, and vit C Current Outpatient Medications Medication Sig Dispense Refill aspirin EC 81 MG EC tablet Take 81 mg by mouth 1 time each day. estradiol (Estrace) 0.1 MG/GM vaginal cream See Instructions, apply pea size amount to urethra and vagina nightly for 2 weeks and then 3xweek. May dispose of applicator., # 43 gm, 3 Refill(s), Pharmacy: [facility] [id number], 167.64, cm, 04/06/23 11:01:00 CDT, Height, 75.455, kg, 04/06/23 11... No current facility-administered medications for this visit. Allergies Allergen Reactions Penicillins Patient Active Problem List Diagnosis Calcium oxalate stones Hyperparathyroidism (HCC) Preventative health care Encounter for screening mammogram for malignant neoplasm of breast Screening for colon cancer History of gastric restrictive surgery H/O: hysterectomy Asymptomatic menopausal state Family history of diabetes mellitus in father Past Surgical History: Procedure Laterality Date BLADDER SURGERY CYSTOSCOPY HYSTERECTOMY KIDNEY STONE SURGERY LITHOTRIPSY TONSILLECTOMY ROS: see hpi O: Blood pressure 123/76, pulse 67, temperature 36.4 ?C (97.5 ?F), temperature source Temporal, height 1.676 m (5' 6"), weight 71.4 kg (157 lb 8 oz), SpO2 98%. Body mass index is 25.42 kg/m?. General Appearance: Well appearing, well developed, well nourished, well hydrated, good color, and in no acute distress Head: Normocephalic atraumatic Eyes: no erythema, no discharge Ears: Normal external shape Nose: no discharge Musculoskeletal: No obvious deformity. Moves all 4 extremities, stable gait. Extremities: Symmetric, no obvious defect Neurologic: Alert/appropriate Skin: no obvious rash Psych: Mood congruent affect, responds appropriately to questions. ASSESSMENT AND PLAN: - Recommended yearly HCM visits - Preventative dental and vision exams recommended - Age-appropriate vaccines recommended - Discussed importance of healthy diet and exercise (5x/week, 20-30 minutes of sustained cardiovascular training) - Advised to wear seatbelt and sunscreen. Problem List Items Addressed This Visit Hyperparathyroidism (HCC) Relevant Orders Ambulatory referral to Endocrinology Preventative health care - Primary Relevant Orders Complete Blood Count w/Diff and Platelet (Completed) Thyroid Stimulating Hormone (Completed) Lipid Panel w/calculated LDL (Completed) Hemoglobin A1c (Completed) Comprehensive Metabolic Panel (Completed) Encounter for screening mammogram for malignant neoplasm of breast Relevant Orders Bilateral screening mammogram with tomosynthesis Screening for colon cancer Relevant Orders Cologuard? colon cancer screening History of gastric restrictive surgery Relevant Orders Complete Blood Count w/Diff and Platelet (Completed) Comprehensive Metabolic Panel (Completed) Vitamin A Level (Completed) Vitamin D 25-Hydroxy (Completed) Vitamin B12 Level (Completed) Folate RBC (Completed) Ferritin (Completed) Vitamin B1 Level (Completed) Copper, serum (Completed) Zinc (Completed) Magnesium (Completed) Vitamin B6 Level (Completed) H/O: hysterectomy Asymptomatic menopausal state Relevant Orders DEXA bone density Family history of diabetes mellitus in father Relevant Orders Hemoglobin A1c (Completed) Patient understands and verbalizes agreement. As the patient's primary care provider we will add G2211 as an additional CPT code to account for the long-term, comprehensive, longitudinal care of complex medical conditions addressed during this visit and requiring review of historical medical records including, but not limited to, specialist records, laboratory testing, imaging, and coordination of care with specialists. Arpit Garzon MD 4:45 AM May 14, 2024 [id number] 04:47:48Scheduled Orders Scheduled Referrals Name Type Priority Associated Diagnoses Orde r Schedule Ambulatory referral to Endocrinology Outpatient Referral Routine Hyperparathyroidism (HCC) Expected: 05/07/2024 (Approximate), Expires: 11/04/2024 Health Maintenance Due Date Last Done Comments Bone Density Scan 1956 CT Colonography 1956 Colonoscopy 1956 Colorectal Cancer Screening 1956 FIT-DNA 1956 FIT 1956 FOBT 1956 Sigmoidoscopy 1956 DTaP/Tdap/Td Vaccines (1 - Tdap) 1975 Mammogram 1996 Zoster Vaccines (1 of 2) 2006 Respiratory Syncytial Virus (RSV) or >=60 (1 - 1-dose 60+ series) 2016 Influenza Vaccine (#1) 2024 05/15/2023 Pneumococcal Vaccine: 65+ Years Completed 3 HIB Vaccines Aged Out No longer eligi ble based on patient's age to complete this topic HPV Vaccines Aged Out No longer eligi ble based on patient's age to complete this topic Hepatitis A Vaccines Aged Out No long er eligible based on patient's age to complete this topic Hepatitis B Vaccines Aged Out No long er eligible based on patient's age to complete this topic IPV Vaccines Aged Out No longer eligi ble based on patient's age to complete this topic Meningococcal Vaccine Aged Out No fish roma eligible based on patient's age to complete this topic Rotavirus Vaccines Aged Out No longer eligible based on patient's age to complete this topic [id number] 04:47:48 Diagnosis Preventative health care - Primary Routine general medical examination at a health care facility Hyperparathyroidism (HCC) Hyperparathyroidism, unspecified Encounter for screening mamm ogram for malignant neoplasm of breast Screening for colon cancer Special screening for malignant neoplasms, colon History of gastric restricti ve surgery Asymptomatic menopausal stat e H/O: hysterectomy Acquired absence of both cervix and uterus Family history of diabetes m ellitus in father [id number] 04:47:48 [id number] 11:17:47 [id number] Health Screening Guidelines, Women Ages 65 and Older Screening tests and health counseling are a barton part of managing your health. A screening test is done to find disorders or diseases in people who don't have any symptoms. Screening tests are not used to diagnose. They are used to find out if more testing is needed. The goal may be to find a disease early so it can be treated with more success. Or the goal may be to find a disease early so you can make lifestyle changes. You may need regular checkups to help reduce your risk of disease. Below are guidelines for women ages 65 and older. Talk with your healthcare provider. Based on your health history and risk factors, your provider may change the screening advice. Make sure you?re up-to-date on what you need. Screening Who needs it How often Type 2 diabetes or prediabetes Women in this age group up to age 70 who are overweight or have obesity Talk with your healthcare provider about how often they recommend screening. Type 2 diabetes All women with prediabetes Every 1 to 2 years Unhealthy alcohol use All women in this age group At routine exams Blood pressure All women in this age group Once a year if your blood pressure is normal. Normal blood pressure is less than 120/80 mm Hg. If your blood pressure is higher than this, follow the advice of your healthcare provider. Breast cancer All women of average risk. Expert groups vary on their advice. Talk with your provider about your specific situation. A mammogram should be done every 1 or 2 years. Talk with your provider about your risk factors. Ask how often you need the test. Ask what age you can stop. The U.S. Preventive Services Task Force advises a mammogram every 2 years through age 74. The [place] [employer] advises screening every 1 to 2 years for women 55 and older. They advise screening to continue for as long as a woman is healthy and is expected to live 10 more years or longer. All women should know how their breasts normally look and feel. They should know the benefits and risks of breast cancer screening with mammograms. Cervical cancer Only women who have not been screened regularly or have had abnormal screening results before age 65 Talk with your healthcare provider if screening is needed. Chlamydia Women at higher risk for infection At routine exams. Talk with your healthcare provider. Colorectal cancer All women at average risk in this age group through age 75. For women ages 76 to 85, ask your healthcare provider if you need to keep screening. For women older than 85, screening is not advised Talk with your healthcare provider about which test below is right for you: ? Colonoscopy every 10 years ? Flexible sigmoidoscopy every 5 years (or every 10 years with yearly fecal immunochemical test (FIT) stool test) ? CT colonography (virtual colonoscopy) every 5 years ? Yearly fecal occult blood test ? Yearly FIT ? Stool DNA test every 3 years If you have a test that is not a colonoscopy and have an abnormal test result, you will need a colonoscopy. You may need to be screened more or less often. This is based on personal or family health history. Talk with your healthcare provider. Depression All women in this age group At routine exams Gonorrhea Sexually active women at higher risk for infection At yearly routine exams. Talk with your healthcare provider. Hepatitis C Test 1 time for women through age 79. At routine exams High cholesterol or triglycerides All women in this age group who are at risk for coronary artery disease Every year. Talk with your healthcare provider about your risk. HIV Women at higher risk for infection At routine exams. Talk with your healthcare provider. Lung cancer Women ages 50 to 80 who are in fairly good health, are at higher risk for lung cancer, and who: ? Smoke or have quit smoking and ? Have a 20-pack per year smoking history (1 pack a day for 20 years or 2 packs a day for 10 years) Expert groups vary in their advice. Talk with your provider. Yearly lung cancer screening with a low dose CT scan (LDCT). Talk with your healthcare provider about your risk factors. Obesity All women in this age group At yearly routine exams Osteoporosis All women in this age group Routinely done every 2 years. Repeat as advised by your healthcare provider. Syphilis Women at higher risk for infection At routine exams. Talk with your healthcare provider. Thyroid-Stimulating Hormone (TSH) Women in this age group with symptoms of thyroid dysfunction Talk with your healthcare provider Tuberculosis Women at higher risk for infection Talk with your healthcare provider Vision All women in this age group Every 1 to 2 years. If you have a chronic health condition, ask your eye care provider if you need exams more often. Counseling Who needs it How often Diet and exercise Women who are overweight or obese When diagnosed, and then at routine exams Fall prevention (exercise and vitamin D supplements) All women in this age group At routine exams Sexually transmitted infection (STI) prevention Women at higher risk for infection At routine exams. Talk with your healthcare provider. Use of tobacco and the health effects it can cause All women in this age group Every exam Last Reviewed Date: 2024 00:00:00 ? 7180-6526 The [employer]. All rights reserved. This information is not intended as a substitute for professional medical care. Always follow your healthcare professional's instructions. [id number] 13:24:46* Imaging (Routine) - Authorized Specialty Diagnoses / Procedures Referred By Shelton harper Referred To Contact Radiology Diagnoses Calculus of kidney Hyperparathyroidism, unspecified (HCC) Procedures CT abdomen pelvis [place] [id number] [facility] [address] [phone] Referral ID Status Reason Start Date Expiration Date V isits Requested Visits Authorized [id number] Authorized 04/11/2024 10/08/2024 1 1 [facility]115[facility]-24 13:24:46* [facility]jq[facility]85[facility]72-28 13:24:46* Sreekanth Darnell MD - 04/11/2024 11:20 AM CDT Subjective Suha Moyer is a 68 y.o. who presents today follow up of Results (Renal US, no KUB) 67-year-old female with recurrent kidney stones and UTIs. She reports spontaneous passage of multiple stones and one episode requiring lithotripsy. She recently passed a 6 mm stone which she brings with her today. She had a CT scan which was obtained on 02/28/2023. I personally reviewed the images which demonstrate a 6 mm distal left ureteral calculus with hydronephrosis she also has small indeterminate renal cysts She reports recurrent infections about 3 every year Plan: 67-year-old female with recurrent kidney stones and UTI and renal cyst UTI prevention handout given Discussed hydration, constipation management, Cranberry/d-mannose supplement Estrogen supplementation discussed with patient. prescription sent to pharmacy, risks, benefits and alternatives discussed. We will send stone off for stone analysis We will obtain a renal ultrasound in 6 months to evaluate renal cyst 04/25/2023 Presents today for follow-up Stone analysis analysis demonstrates calcium oxalate monohydrate and dihydrate stone. We discussed proceeding with metabolic work-up with 24-hour urine collection, lab evaluation in 6 weeks We will also order renal ultrasound to confirm resolution of hydronephrosis 06/13/2023 Patient is 24-hour urine collection which demonstrates high urine oxalate, 57 mg per 24-hour, low phosphorus 555 mg per 24-hour. Her urine volume is 2.14 L. Her supersaturation of calcium oxalate is 8.78. Her labs were remarkable for elevated parathyroid. She does report a history of a gastric bypass Renal ultrasound with intraparenchymal stones with no collecting system stones. No hydronephrosis. Recommended that she adhere to a low oxalate diet and a dietary calcium of 800 to 1200 mg/day. Low oxalate diet handout was provided May have an element of malabsorption related to her bypass. We discussed that for some people they need to be on a calcium supplement with her diet. She does not have a PCP so referred her to Dr. Hatfield for evaluation of hyperparathyroidism [facility] Female Bladder Questionnaire 04/10/2024 11:44 AM CDT - Filed by Patient When do you leak urine? On average, how much do you leak? Has your leakage worsened over the past year? Do you ever leak urine without awareness it's happening? Do you wear a pad or protective undergarment due to leaking? No Select all that apply: None of these How many times a day do you urinate, on average? 4 How many times do you urinate after going to bed, on average? 0 Select all that apply: Past History No past medical history on file. There is no problem list on file for this patient. No past surgical history on file. No family history on file. Allergies Allergen Reactions Penicillins Objective Ht 1.676 m (5' 6") | Wt 72.6 kg (160 lb) | BMI 25.82 kg/m? General Appearance: Alert, cooperative, no distress, appropriate for age HEENT: Normocephalic, EOM's intact, conjunctiva and corneas clear, moist mucous membranes Lungs: Respirations unlabored Back: no CVA tenderness Abdomen: Soft, non-tender, bowel sounds active all four quadrants, no mass, or organomegaly Musculoskeletal: Tone and strength strong and symmetrical, all extremities Skin/Hair/Nails: Skin warm, dry, and intact, no rashes or abnormal dyspigmentation Neurologic: Alert and oriented x3 Assessment/Plan There are no diagnoses linked to this encounter. * Sreekanth Darnell MD - 04/11/2024 11:20 AM CDT Subjective Suha Moyer is a 68 y.o. who presents today follow up of Results (Renal US, no KUB) 67-year-old female with recurrent kidney stones and UTIs. She reports spontaneous passage of multiple stones and one episode requiring lithotripsy. She recently passed a 6 mm stone which she brings with her today. She had a CT scan which was obtained on 02/28/2023. I personally reviewed the images which demonstrate a 6 mm distal left ureteral calculus with hydronephrosis she also has small indeterminate renal cysts She reports recurrent infections about 3 every year Plan: 67-year-old female with recurrent kidney stones and UTI and renal cyst UTI prevention handout given Discussed hydration, constipation management, Cranberry/d-mannose supplement Estrogen supplementation discussed with patient. prescription sent to pharmacy, risks, benefits and alternatives discussed. We will send stone off for stone analysis We will obtain a renal ultrasound in 6 months to evaluate renal cyst 04/25/2023 Presents today for follow-up Stone analysis analysis demonstrates calcium oxalate monohydrate and dihydrate stone. We discussed proceeding with metabolic work-up with 24-hour urine collection, lab evaluation in 6 weeks We will also order renal ultrasound to confirm resolution of hydronephrosis 06/13/2023 Patient is 24-hour urine collection which demonstrates high urine oxalate, 57 mg per 24-hour, low phosphorus 555 mg per 24-hour. Her urine volume is 2.14 L. Her supersaturation of calcium oxalate is 8.78. Her labs were remarkable for elevated parathyroid. She does report a history of a gastric bypass Renal ultrasound with intraparenchymal stones with no collecting system stones. No hydronephrosis. Recommended that she adhere to a low oxalate diet and a dietary calcium of 800 to 1200 mg/day. Low oxalate diet handout was provided May have an element of malabsorption related to her bypass. We discussed that for some people they need to be on a calcium supplement with her diet. She does not have a PCP so referred her to Dr. Hatfield for evaluation of hyperparathyroidism 04/11/2024 Patient presents with repeat renal ultrasound which demonstrates new kidney stones She reports adhering to a low oxalate diet with a normal amount of calcium per day. She has not seen anybody for the hyperparathyroidism Will obtain a CT abdomen pelvis without contrast to evaluate stone presence. Will obtain a KUB to see if the radiolucent or radiopaque Will refer her to endocrine surgery as well as Dr. Hatfield for PCP E&M visit today is associated with current or anticipated ongoing medical care services related to a patient's single, serious condition or a complex condition. [facility] Female Bladder Questionnaire 04/10/2024 11:44 AM CDT - Filed by Patient When do you leak urine? On average, how much do you leak? Has your leakage worsened over the past year? Do you ever leak urine without awareness it's happening? Do you wear a pad or protective undergarment due to leaking? No Select all that apply: None of these How many times a day do you urinate, on average? 4 How many times do you urinate after going to bed, on average? 0 Select all that apply: Past History No past medical history on file. There is no problem list on file for this patient. No past surgical history on file. No family history on file. Allergies Allergen Reactions Penicillins Objective Ht 1.676 m (5' 6") | Wt 72.6 kg (160 lb) | BMI 25.82 kg/m? General Appearance: Alert, cooperative, no distress, appropriate for age HEENT: Normocephalic, EOM's intact, conjunctiva and corneas clear, moist mucous membranes Lungs: Respirations unlabored Back: no CVA tenderness Abdomen: Soft, non-tender, bowel sounds active all four quadrants, no mass, or organomegaly Musculoskeletal: Tone and strength strong and symmetrical, all extremities Skin/Hair/Nails: Skin warm, dry, and intact, no rashes or abnormal dyspigmentation Neurologic: Alert and oriented x3 Assessment/Plan Diagnoses and all orders for this visit: Calculus of kidney - CT abdomen pelvis wo IV contrast; Future - XR abdomen 1 view; Future Hyperparathyroidism, unspecified (HCC) - CT abdomen pelvis wo IV contrast; Future - XR abdomen 1 view; Future [id number] 13:24:46Upcoming Encounters Health Maintenance Due Date Last Done Comments CT Colonography 1955 Colonoscopy 1955 Colorectal Cancer Screening 1955 FIT-DNA 1955 FIT 1955 FOBT 1955 Sigmoidoscopy 1955 DTaP/Tdap/Td Vaccines (1 - Tdap) 1975 Mammogram 1996 Zoster Vaccines (1 of 2) 2006 Respiratory Syncytial Virus (RSV) or >=60 (1 - 1-dose 60+ series) 2016 Pneumococcal Vaccine: 65+ Ye ars (1 of 1 - PCV) 2021 Influenza Vaccine (#1) 2024 HIB Vaccines Aged Out No longer eligi ble based on patient's age to complete this topic HPV Vaccines Aged Out No longer eligi ble based on patient's age to complete this topic Hepatitis A Vaccines Aged Out No long er eligible based on patient's age to complete this topic Hepatitis B Vaccines Aged Out No long er eligible based on patient's age to complete this topic IPV Vaccines Aged Out No longer eligi ble based on patient's age to complete this topic Meningococcal Vaccine Aged Out No fish roma eligible based on patient's age to complete this topic Rotavirus Vaccines Aged Out No longer eligible based on patient's age to complete this topic [id number] 13:24:46 Diagnosis Calculus of kidney - Primary Hyperparathyroidism, unspecified (HCC) Hyperparathyroidism, unspecified [id number] 13:24:46 [id number] 12:09:49 Pt given printed and verbal discharge instructions regarding flank pain, encouraged hydration, Prescriptions provided Discussed ibuprofen and to take with food to avoid GI distress, alternate with Tylenol to help withpain and/or fever Discussed medication side affects and to avoid driving/operating machinery/or engaging in activities requiring alertness while taking. Pt verbalized understanding of instructions,pt encouraged to follow up with pcp and or specialist Advised to seek medical attention for new/prolonged/worsening of symptoms, No adverse reaction to meds given in ER noted upon discharge PIV d'cd, dressing to site, catheter in tact. Awake, alert oriented, resp reg unlabored, skin w/d, pt leaving in no apparent distress, Cary Reddy [id number] 10:42:42 Pt c/o intermittent left flank pain and left sided abdominal pain that started 3 days ago. States "I pee'd blood on Tuesday and I have a history of kidney stones". Denies N/V, fever, dysuria. [place] [id number] 10:39:00 [facility] Emergency Department Note Patient Name: Lucia Moyer Date of : 1955 67 year old female Treatment [facility] Primary Care Physician: PATIENT DOES NOT HAVE A PCP Patient Escorted by: Self [9] Mode of Arrival: Personal means [1] EMS Treatment Prior to ED Arrival: [employer] treatment: None Travel and Exposure Screening: Symptoms Does patient have any of these symptoms?: (not recorded) Exposure Screening Has patient had contact with someone with a communicable disease in the last month?: (not recorded) Diseases exposed to:: (not recorded) Is Patient ?: (not recorded) Exposure Date: (not recorded) Chief Complaint: Chief Complaint Patient presents with Flank Pain Left History of Present Illness: The patient presents from home for evaluation for hematuria that started on Tuesday as well as some left-sided flank pain its been waxing and waning since. Today is Tuesday morning. No nausea or vomiting. No fevers or chills. No dysuria. She states that hematuria has been coming going as well and shelast had some earlier this morning. No medications for symptoms. She does have a history of kidney stones and has required lithotripsy in the past. She last had kidney stones to her knowledge approximately 2 years ago. No chest pain or shortness of breath. Here for evaluation. Past Medical History/Immunizations: History reviewed. No pertinent past medical history. Tetanus received in last 5 years: Unknown Allergies: No Known Allergies Past Social History: Substance & Sexual Activity No substance use or sexual activity history on file. Past Surgical History: History reviewed. No pertinent surgical history. Review of Systems: Review of Systems Constitutional: Negative for chills and fever. Respiratory: Negative for cough and shortness of breath. Cardiovascular: Negative for chest pain. Gastrointestinal: Negative for abdominal pain and vomiting. Genitourinary: Positive for hematuria and flank pain. Negative for dysuria. Musculoskeletal: Negative for arthralgias, neck pain and neck stiffness. Skin: Negative for wound. Neurological: Negative for dizziness. Psychiatric/Behavioral: Negative for agitation. Endocrine: Negative for goiter. Physical Exam: ED Triage Vitals [02/28/23 1043] Weight 75.3 kg (166 lb) Actual or estimated Estimated by patient/family report Height 1.676 m (5' 6") BP (!) 145/79 Pulse 98 Resp 20 Temp 37.1 ?C (98.8 ?F) Temp source Oral SpO2 97 % Measured on Room air Physical Exam Vitals and nursing note reviewed. Constitutional: Appearance: Normal appearance. HENT: Head: Normocephalic and atraumatic. Cardiovascular: Rate and Rhythm: Normal rate and regular rhythm. Pulses: Normal pulses. Pulmonary: Effort: Pulmonary effort is normal. No respiratory distress. Breath sounds: No wheezing. Abdominal: General: There is no distension. Palpations: Abdomen is soft. Tenderness: There is no abdominal tenderness. There is no right CVA tenderness, left CVA tendernessor guarding. Musculoskeletal: General: Normal range of motion. Cervical back: Normal range of motion and neck supple. Skin: General: Skin is warm and dry. Neurological: General: No focal deficit present. Mental Status: She is alert and oriented to person, place, and time. Radiology: CT ABDOMEN PELVIS WO CONTRAST Preliminary Result CT ABDOMEN PELVIS WO CONTRAST 02/28/2023 10:50 AM HISTORY: Flank pain, kidney stone suspected left-sided abdominal pain starting 3 days ago. Patient reports hematuria with history of kidney stones. COMPARISON: None. TECHNIQUE AND FINDINGS: Contiguous axial imaging of abdomen and pelvis was performed without contrast. Coronal and sagittal reconstructions were obtained. FINDINGS: Statements: Lack of intravenous contrast compromises evaluation of solid organs and vasculature. LOWER THORAX: The lungs bases are clear. HEPATOBILIARY: Normal size liver. No biliary ductal dilatation. Cholelithiasis. SPLEEN: Unremarkable. PANCREAS: No ductal dilation. ADRENAL GLANDS: No adrenal nodules. KIDNEYS: A 5 mm kidney stone is lodged in the left UVJ with mild hydroureteronephrosis (8:253). No definite stones are seen in the right ureter. A subcentimeter hyperdensity in the mid pole of the left kidney is too small to characterize (8:90). A subtle intermediate density 1.4 lesion is seen adjacent to this hyperdense lesion in the left kidney. Nonobstructing left-sided nephrolithiasis. GI TRACT: No dilation or wall thickening. The appendix is unremarkable. Small hiatal hernia is present. 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 PERITONEUM AND RETROPERITONEUM: No free air or free fluid. LYMPH NODES: No lymphadenopathy. PELVIS/BLADDER: Mild atherosclerotic plaque in abdominal aorta and its branches. VESSELS: Unremarkable BONES AND SOFT TISSUES: No suspicious lytic or sclerotic bone lesions. Mild to moderate degenerative changes of the thoracolumbar spine. IMPRESSION 5 mm left UVJ kidney stone with mild hydronephrosis. A subcentimeter hypodensity in the midpole left kidney is too small to characterize but is of greater density than fluid. Recommend further evaluation with CT renal phase protocol a nonemergent basis. Preliminary Report Dictated by Resident: Eleuterio Floyd Lab Results: Lab Results URINALYSIS - Abnormal Result Value Ref Range APPEARANCE Clear Clear COLOR Straw (*) Yellow PH 7.0 4.8 - 8.0 SP GRAVITY 1.004 1.003 - 1.030 GLU U QUAL Normal Normal BLOOD 3+ (*) Negative KETONES Negative Negative PROTEIN Negative Negative UROBILIN Normal Normal BILIRUBIN Negative Negative NITRITE Negative Negative LEUK MARSHALL Negative Negative RBC/HPF 2 0 - 3 HPF WBC/HPF 1 0 - 5 HPF BACTERIA Negative Negative CBC WITH DIFF WBC 6.08 4.30 - 11.10 10*3/?L RBC 4.29 3.93 - 5.25 10*6/?L HGB 13.7 11.6 - 15.0 g/dL HCT 40.2 35.7 - 45.2 % MCV 93.7 80.6 - 95.5 fL MCH 31.9 25.9 - 32.8 pg MCHC 34.1 31.6 - 35.1 g/dL RDW-SD 45.1 39.0 - 49.9 fL RDW-CV 13.1 12.0 - 15.5 % PLT 280 166 - 358 10*3/?L MPV 10.3 9.5 - 12.9 fL NRBC/100 WBC 0.0 0.0 - 10.0 /100 WBCs NRBC x10^3 <0.01 10*3/?L GRAN MAT (NEUT) % 52.4 % IMM GRAN % 0.20 % LYMPH % 32.2 % MONO % 12.2 % EOS % 2.0 % BASO % 1.0 % GRAN MAT x10^3(ANC) 3.19 1.88 - 7.09 10*3/uL IMM GRAN x10^3 <0.03 0.00 - 0.06 10*3/uL LYMPH x10^3 1.96 1.32 - 3.29 10*3/uL MONO x10^3 0.74 0.33 - 0.92 10*3/uL EOS x10^3 0.12 0.03 - 0.39 10*3/uL BASO x10^3 0.06 0.01 - 0.07 10*3/uL BASIC METABOLIC PANEL (NA, K, CL, CO2, GLUCOSE, BUN, CREATININE, CA) NA 141 135 - 145 mmol/L K 3.7 3.5 - 5.0 mmol/L CL 105 98 - 108 mmol/L CO2 TOTAL 27 23 - 31 mmol/L AGAP 9 2 - 16 BUN 13 7 - 23 mg/dL GLUCOSE 94 70 - 110 mg/dL CREATININE 0.68 0.50 - 1.04 mg/dL CALCIUM 9.6 8.6 - 10.6 mg/dL eGFR 86.6 mL/min/1.73m2 EKG: If EKG completed, see Procedure Note. Orders and Treatments: Orders Placed This Encounter Procedures CT ABDOMEN PELVIS WO CONTRAST CBC WITH DIFF URINALYSIS BASIC METABOLIC PANEL (NA, K, CL, CO2, GLUCOSE, BUN, CREATININE, CA) Orders Placed This Encounter Medications ketorolac (TORADOL) injection 15 mg ketorolac 10 mg tablet First Provider Eval: ED Events Date/Time Event User Comments 02/28/23 1041 Medical Screening Begins CINTHYA PAREDES DO -- 02/28/23 1041 First Provider Evaluation CINTHYA PAREDES DO -- ED COURSE Diagnosis/Impression as of 02/28/23 1200 Flank pain Hematuria, unspecified type Ureteral stone Procedures: Procedures MDM: Medical Decision Making The patient presents from home for evaluation for hematuria that has been waxing waning since Tuesday as well as some left-sided flank pain. No nausea or vomiting. No fevers or chills. No dysuria. No medications for symptoms. She does have a history of kidney stones in the past and this feels like it. She has required lithotripsy in the past. No medications for symptoms. Vital signs are stable here in the ER. Her abdomen is soft and nontender on examination. She has no CVA tenderness bilaterally. Differential diagnosis includes renal colic, UTI and pyelonephritis. We will check a urinalysis as well as laboratory studies. We will obtain a CT of her abdomen pelvis without contrast to evaluate for possible renal stones. We will provide the patient with pain medication. Anticipate discharge home later. 1159 -the patient is doing well here in the ER. Her pain is much improved since arrival to the ER. Her urinalysis shows hematuria but no evidence of an infection. The CT of her abdomen pelvis shows a 5 mm stone on the left UVJ with mild hydronephrosis. She remained stable here in the ER and is okay for discharge home with outpatient follow-up with urology. Problems Addressed: Flank pain: acute illness or injury Hematuria, unspecified type: acute illness or injury Ureteral stone: acute illness or injury Amount and/or Complexity of Data Reviewed Labs: ordered. Decision-making details documented in ED Course. Radiology: ordered and independent interpretation performed. Decision-making details documented in ED Course. Risk Prescription drug management. Flowsheet Documentation: Scoring Tools: No data recorded Disposition/Condition: ED Disposition ED Disposition Disch - Home Condition Stable Comment -- Discharge Medications: Patient's Medications START taking these medications KETOROLAC 10 MG TABLET Take 1 tablet by mouth every 6 (six) hours as needed for Pain (scale 1-3). CONTINUE taking these medications which have NOT CHANGED No medications on file START taking Modified Medications as Prescribed No medications on file STOP taking these medications No medications on file Follow-up: Contact information for follow-up Pcp, Patient Does Not Have A Relationship: PCP Kerry Ruiz [address] [place] [id number] Electronically signed by: Cinthya Paredes DO 02/28/23 1200 T [facility]
[2025-03-20 14:35] LABS: Influenza A Ag Negative; Influenza B Ag Negative
[2025-03-20 14:36] LABS: SARS-CoV-2 Antigen Rapid Res Positive (Negative)
--- NOTE | 2025-03-20 14:48 | RAD REPORT ---
EXAM: Chest Pa And Lat (2 Views) HISTORY: 69 years Female Cough;Congestion COMPARISON: 08/30/2010 FINDINGS: LUNGS/PLEURA: The lungs are clear. No pleural effusions or pneumothorax. No pulmonary edema. CARDIAC/MEDIASTINUM: The cardiac silhouette is within normal limits. UPPER ABDOMEN: No significant abnormality. BONES: No acute abnormality. LINES/TUBES/OTHER: N/A IMPRESSION: No evidence of acute cardiopulmonary disease.
--- NOTE | 2025-03-20 15:16 | EDPHYS ---
Physician Documentation [facility] Name: Lucia Baez Age: 69 yrs Sex: Female : 1955 Arrival Date: 03/20/2025 Time: 13:18 Bed 12 Private MD: ED Physician Manolo Lugo HPI: 03/20 15:32 This 69 yrs old Female presents to ER via Ambulatory with complaints of Flu Symptoms, kb Headache. 15:30 Pt is a 69 year old female who presents for cough, congestion, headache, sore throat, kb fever and bodyaches that started 3 days ago. Denies n/v/d, shortness of breath. States she is concerned about pneumonia. Historical: - Allergies: 13:30 Antivert; dd2 13:30 PENICILLINS; dd2 - PMHx: 13:30 None; dd2 - PSHx: 13:30 None; dd2 - Immunization history:: Adult Immunizations up to date. - Infectious Disease History:: Denies. - Social history:: Smoking status: Patient denies any tobacco usage or history of. ROS: 15:31 Constitutional: As per HPI kb Exam: 15:31 Constitutional: This is a well developed, well nourished patient who is awake, alert, kb and in no acute distress. Head/Face: Normocephalic, atraumatic. ENT: Moist Mucous membranes Cardiovascular: Regular rate Respiratory: Respirations even and unlabored. No increased work of breathing. Talking in full sentences Skin: Warm, dry with normal turgor. Normal color. MS/ Extremity: Pulses equal, no cyanosis. Neurovascular intact. Full, normal range of motion. Neuro: Awake and alert, GCS 15, oriented to person, place, time, and situation. Vital Signs: 13:24 BP 125 / 69; Pulse 85; Resp 17; Temp 98.9; Pulse Ox 99% on R/A; Weight 70.31 kg; Pain dd2 9/10; 15:28 BP 119 / 71; Pulse 79; Resp 18; Pulse Ox 98% ; bp 13:24 Pain Scale: Adult dd2 MDM: 13:27 Medical Screening Exam initiated kb 15:31 Differential diagnosis: flu, covid, strep, pneumonia. Data reviewed: vital signs, kb nurses notes. I considered the following discharge prescriptions or medication management in the emergency department I discussed and recommended Over The Counter medications, Antibiotics: At this time antibiotics are not recommended. Counseling: I had a detailed discussion with the patient and/or guardian regarding the historical points, exam findings, and any diagnostic results supporting the discharge/admit diagnosis, lab results, radiology results, the need for outpatient follow up, a family practitioner, to return to the emergency department if symptoms worsen or persist or if there are any questions or concerns that arise at home. 15:32 Independent interpretation of the following test(s) in the Emergency Department X-Ray: kb My interpretation is no pneumonia. 03/20 13:29 Order name: COVID-19 Ag + Flu A+B Ag; Complete Time: 14:37 kb 03/20 13:29 Order name: Group A Streptococcus Rapid; Complete Time: 14:27 kb 03/20 14:28 Order name: Throat Culture EDMI 03/20 13:29 Order name: Chest Pa And Lat (2 Views) XRAY; Complete Time: 14:49 kb Administered Medications: No medications were administered Disposition: 16:02 I was immediately available on-site in the Emergency Department for consultation in the ms3 care of the patient. Disposition Summary: 03/20/25 15:15 Discharge Ordered Notes: Location: Home kb Condition: Stable kb Diagnosis - SARS-associated coronavirus as the cause of diseases classified elsewhere kb Followup: kb - With: Emergency Department - When: As needed - Reason: Worsening of condition Followup: kb - With: Private Physician - When: 2 - 3 days - Reason: Recheck today's complaints, Continuance of care, Re-evaluation by your physician Discharge Instructions: - Discharge Summary Sheet kb - COVID-19 kb - Viral Illness, Adult kb Forms: - Medication Reconciliation Form kb - Antibiotic Education kb - Prescription Opioid Use kb - Patient Portal Instructions kb - Leadership Thank You Letter kb Signatures: Dispatcher [employer] EDBonnie Alegre, JACLYN BRISCOE-Manolo Moore DO DO ms3 FREDA ESTEVES RN RN dd2
--- NOTE | 2025-03-20 15:16 | ER ---
Nurse's Notes [facility] Name: Lucia Baez Age: 69 yrs Sex: Female : 1955 Arrival Date: 03/20/2025 Time: 13:18 Bed 12 Private MD: Diagnosis: SARS-associated coronavirus as the cause of diseases classified elsewhere Presentation: 03/20 13:24 Chief complaint: Patient states: COUGH, HEADACHE, SORE THROAT, FEVER AND BODY ACHES dd2 SINCE TUESDAY. Coronavirus screen: chills, congestion, cough unrelated to allergies, headache, muscle pain, sore throat. Ebola Screen: No symptoms or risks identified at this time. Initial Sepsis Screen: Does the patient meet any 2 criteria? No. Patient's initial sepsis screen is negative. Does the patient have a suspected source of infection? No. Patient's initial sepsis screen is negative. Risk Assessment: Do you want to hurt yourself or someone else? Patient reports no desire to harm self or others. Onset of symptoms was March 18, 2025. 13:24 Method Of Arrival: Ambulatory dd2 13:24 Acuity: VICKY 3 dd2 Triage Assessment: 13:30 Headache History: The patient has had previous headaches and this one is similar to dd2 previous episodes. General: Appears in no apparent distress. uncomfortable. Pain: Complains of pain in head, throat, generlized Pain currently is 9 out of 10 on a pain scale. Pain began 2-3 days ago. Also complains of sleeplessness. EENT: Reports pain when swallowing. EENT: Reports nasal congestion. Neuro: Reports headache. Respiratory: Reports cough that is. Respiratory: Reports. Historical: - Allergies: 13:30 Antivert; dd2 13:30 PENICILLINS; dd2 - PMHx: 13:30 None; dd2 - PSHx: 13:30 None; dd2 - Immunization history:: Adult Immunizations up to date. - Infectious Disease History:: Denies. - Social history:: Smoking status: Patient denies any tobacco usage or history of. Screenin:30 [facility] ED Fall Risk Assessment (Adult) History of falling in the last 3 months, bp including since admission No falls in past 3 months (0 pts) Confusion or Disorientation No (0 pts) Intoxicated or Sedated No (0 pts) Impaired Gait No (0 pts) Mobility Assist Device Used No (0 pt) Altered Elimination No (0 pt) Score/Fall Risk Level 0 - 2 = Low Risk Oriented to surroundings. Abuse screen: Denies threats or abuse. Denies injuries from another. Nutritional screening: No deficits noted. Tuberculosis screening: No symptoms or risk factors identified. Assessment: 13:30 General: SEE TRIAGE NOTE. bp Vital Signs: 13:24 BP 125 / 69; Pulse 85; Resp 17; Temp 98.9; Pulse Ox 99% on R/A; Weight 70.31 kg; Pain dd2 9/10; 15:28 BP 119 / 71; Pulse 79; Resp 18; Pulse Ox 98% ; bp 13:24 Pain Scale: Adult dd2 ED Course: 13:23 Patient arrived in ED. cj3 13:24 Bon[facility] Duque [facility]-C [facility] kb 13:24 Manolo Lugo DO is Attending Physician. kb 13:30 Triage completed. dd2 13:30 Arm band placed on right wrist. dd2 13:30 Patient has correct armband on for positive identification. bp 13:42 Naman Grimaldo, RN is Primary Nurse. bp 14:19 Chest Pa And Lat (2 Views) XRAY In Process Unspecified. EDMS 15:29 No provider procedures requiring assistance completed. Patient did not have IV access bp during this emergency room visit. Administered Medications: No medications were administered Medication: 13:30 VIS not applicable for this client. bp Outcome: 15:15 Discharge ordered by MD. kb 15:29 Discharged to home ambulatory, bp 15:29 Condition: stable 15:29 Discharge instructions given to patient, Instructed on discharge instructions, follow up and referral plans. Demonstrated understanding of instructions, follow-up care, 15:29 Patient left the ED. bp Signatures: Dispatcher [employer] EDMS Bonnie Duque FNP-C FNP-Ckb Peltier, Brian, RN RN bp DAVIS, DIANA, RN RN dd2 Nubia Washburn [id number]
[2025-03-20 15:34] VITALS: TEMP 98.9
[2025-03-20 15:36] VITALS: BP 119/71; O2SAT 98
== END 2025-03-20 15:29 | disposition home or self-care (01) ==
LOC: ER 13:18
DX: U07.1 COVID-19 (principal); B97.21 SARS-associated coronavirus as the cause of diseases classified elsewhere; Z88.0 Allergy status to penicillin; Z88.8 Allergy status to other drugs, medicaments and biological substances
CPT/HCPCS: 36415; 71046; 87070; 87428; 99282